=== PATIENT | male | born 1990 | race Two or more races ===

== ENCOUNTER 2024-06-22 01:59 | Emergency (ER) | payer OTHER, MEDICAID, SELFPAY ==
[2024-06-22 02:05] VITALS: BP 108/82; PULSE 68; TEMP 36.8; O2SAT 98; BMI 27.0
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
[2024-06-22] MEDS: OXYCODONE HCL/ACETAMINOPHEN 5MG/325MG 1 TAB PO (02:53)
[2024-06-22] MEDS: OXYCODONE HCL/ACETAMINOPHEN 5MG/325MG 2 TAB PO (03:54)
[2024-06-22] MEDS: BACITRACIN 0.9 GM PACKET 1 PACKET TOPICAL (03:55)
[2024-06-22 04:10] VITALS: BP 90/58; PULSE 51; O2SAT 96
== END 2024-06-22 04:15 | disposition home or self-care (01) ==
PROVIDERS: Emergency Provider Emergency Medicine
DX: S80.02XA Contusion of left knee, initial encounter (principal); S76.011A Strain of muscle, fascia and tendon of right hip, initial encounter; S80.01XA Contusion of right knee, initial encounter; M92.523 Juvenile osteochondrosis of tibia tubercle, bilateral; S80.811A Abrasion, right lower leg, initial encounter; V49.59XA Passenger injured in collision with other motor vehicles in traffic accident, initial encounter
CPT/HCPCS: 73562; 99283

== ENCOUNTER 2025-06-22 12:50 | Emergency (ER) | payer OTHER, MEDICAID, SELFPAY ==
--- OUTSIDE RECORDS SUMMARY | 2025-01-22 09:42 | XMS_ITS | Continuity of Care Document ---
Author Organization [facility] Address [address] [place] [address] Phone Care Team Providers Care Electric Needle Specialist Name Role Phone Bre Epstein Unavailable Unavailable Procedures Procedure Date Acute Detox Elevator Constructor Electric Acute Detox Elevator Constructor Electric ROUTINE VENIPUNCTURE DRUG TEST PRSMV DIR OPT OBS Acute Detox Elevator Constructor Electric Acute Detox Elevator Constructor Electric Advance Directives Directive Yes / No Effective Date File Name No Information Encounters Encounter Description Practice Location Reason(s) For Visit Diagnoses Date Provider Providers Copied on Encounter [facility], [address] [place] [address], [id number], [place] tel:[phone] [facility] Detox No Information Klidas Bre. [address], [place], [id number], [place]. tel:[phone] [facility], [address], [place], [id number], [place] tel:[phone] [facility] Detox No Information Klidas Bre. [address], [place], [id number], [place]. tel:[phone] [facility], [address] [place] [address], [id number], [place] tel:[phone] [facility] Detox No Information Klidas Bre. [address], [place], [id number], [place]. tel:[phone] Family History Family Member Type Diagnosis Age At Onset No Information Payers Payer name Insurance type Covered libertarian ID Authornena duke(s) [facility] Medicaid [id number] Social History Type Description Quantity Date Captured Comments Sex Male Smoking Status No Information Chief Complaint And Reason For Visit No Information Reason For Referral Reason For Referral No Information History Of Present Illness Encounter Date Complaint History Of Prese nt Illness No Information Functional Status Date Functional Assessmen t No Information Instructions Date Instruction Additional Infor mation No Information Assessments Type Assessment Date No Information Patient Care Teams Name Effective Dates (start - stop) Status Members No Information
--- OUTSIDE RECORDS SUMMARY | 2025-02-14 09:00 | XMS_ITS ---
Author Organization [facility] Address [address] [place] [address] Care Team Providers Care Pest Controller Name Role Phone Vee Oh Primary Care Provider Roly Andrews Unavailable [phone] REASON FOR VISIT follow-up hospitalization Medications Medication SIG (Take, Route, Frequency, Duration) Notes Start Date End Date Status QUEtiapine Fumarate 100 MG 1 tablet twic e a day; Duration: 90 days Active Gabapentin 600 MG 1 tablet four times a day; Duration: 30 days Active Viibryd 20 MG 1 tablet with food O rally Once a day; Duration: 30 days 11/19/2022 Active Encounters Encounter Location Date Provider Diagnosis [facility] [address] [facility] [place] [address] 2024 Roly Andrews Plan Of Treatment Next Appt Details Provider Name:Willa Sommersmago dominic, 06/29/2025 08:00:00 AM, [address] [facility], [address], Progress Notes * LUAN JESUS ADOB:1990 (34 yo M)Acc No.[id number]:02/14/2025 Behavioral Health Patient: LUAN MORGAN Provider: MARY Swartz :1990 A ge:34 Y S ex:Male Date:02/14/2025 Address: [address] [place], [id number] Pcp:Vee Oh Subjective: * Chief Complaints: * 1 . Follow-up hospitalization. * Medical History: * Medications: T aking QUEtiapine Fumarate 100 MG Tablet 1 tablet twice a day , Taking Gabapentin 600 MG Tablet 1 tablet four times a day , Taking Viibryd 20 MG Tablet 1 tablet with food Orally Once a day Objective: * Vitals: Assessment: Plan: * Treatment: * Images: * Electronic signature of MARY Jane on 06/22/2025 at 01:11 PM EDT Sign off status: Pending * Provider: MARY Swartz Date: 02/14/2025 Generated for Giovanny jamison/Alice/Sarthak on: 06/22/2025 01:11 PM EDT
--- OUTSIDE RECORDS SUMMARY | 2025-03-07 11:45 | XMS_ITS ---
Author Organization [facility] es Address [address] [place] [address] Care Team Providers Care Cage Cashier Name Role Phone Vee Oh Primary Care Provider Roly Andrews Unavailable [phone] REASON FOR VISIT 3 month F/U virtual Doximity Encounters Encounter Location Date Provider Diagnosis [facility] [place] [address] [place] [address] 2024 Roly Andrews Plan Of Treatment Next Appt Details Provider Name:Willa alfaro, 06/29/2025 08:00:00 AM, [address] [place], [address], Progress Notes * LUAN JESUS ADOB:1990 (34 yo M)Acc No.[id number]:03/07/2025 Behavioral Health Patient: LUAN MORGAN Provider: MARY Swartz :1990 A ge:34 Y S ex:Male Date:03/07/2025 Address:[address], [id number] Pcp:Vee Oh Subjective: * Chief Complaints: * 1 . 3 month F/U virtual Doximity. * Medical History: Objective: * Vitals: Assessment: Plan: * Treatment: * Images: * Electronic signature of MARY Jane on 06/22/2025 at 01:11 PM EDT Sign off status: Pending * Provider: MARY Swartz Date: 0 03/07/2025 Generated for Giovanny Krueger/Sarthak on: 0 06/22/2025 01:11 PM EDT
--- OUTSIDE RECORDS SUMMARY | 2025-03-09 11:45 | XMS_ITS ---
Author Organization [facility] es Address [address] [place] [address] Care Team Providers Care Sanitation Associate Name Role Phone Vee Oh Primary Care Provider Roly Andrews Unavailable [phone] REASON FOR VISIT 3 month f/u r/s from 03/07 Medications Medication SIG (Take, Route, Frequency, Duration) Notes Start Date End Date Status QUEtiapine Fumarate 100 MG 1 tablet twic e a day; Duration: 90 days Active Gabapentin 600 MG 1 tablet four times a day; Duration: 30 days Active Viibryd 20 MG 1 tablet with food O rally Once a day; Duration: 30 days 11/19/2022 Active Encounters Encounter Location Date Provider Diagnosis [facility] [address] [place] [address] 2024 Roly Andrews Plan Of Treatment Next Appt Details Provider Name:Willa Matthews dominic, 06/29/2025 08:00:00 AM, [address] [place], [address], Progress Notes * LUAN JESUS ADOB:1990 (34 yo M)Acc No.[id number]:03/09/2025 Behavioral Health Patient: LUAN MORGAN Provider: MARY Swartz :1990 A ge:34 Y S ex:Male Date:03/09/2025 Address: [address] [place], [id number] Pcp:Vee Oh Subjective: * Chief Complaints: * 1 . 3 month f/u r/s from 03/07. * Medical History: * Medications: T aking [...] Pending * Provider: MARY Swartz Date: 0 03/09/2025 Generated for Giovanny jamison/Alice/Sarthak on: 0 06/22/2025 01:11 PM EDT
[2025-06-22 12:58] VITALS: BP 119/74; PULSE 112; TEMP 37.2; O2SAT 98; BMI 26.4
--- OUTSIDE RECORDS SUMMARY | 2025-06-22 13:11 | XMS_ITS | Patient Health Record ---
Author Organization [facility] es Address [address] [place] [address] Care Team Providers Care Railways Assistant Name Role Phone kimberlyJerricagalindoRosalvaVee Primary Care Provider Roly Andrews Unavailable [phone] Willa Wright Unavailable [phone] Allergies Allergen (clinical drug ingredient) Drug/Non Drug Allergy documented on EMR Reaction Allergy Type Onset Date Status DTAP (uncoded) SEIZURES Allergy Activ e Reason For Referral No Information Medications Medication SIG (Take, Route, Frequency, Duration) Notes Start Date End Date Status QUEtiapine Fumarate 100 MG 1 tablet Oral ly twice a day; Duration: 30 days Active Gabapentin 600 MG 1 tablet Orally four times a day; Duration: 30 days Active Viibryd 20 MG 1 tablet with food O rally Once a day; Duration: 30 days 11/19/2022 Active Social History Tobacco Use: Social History Observation Description Date Details (start date - stop date) Current Smoker NA - NA Tobacco Screen: Question Answer Notes Are you a: current smoker How often do you smoke cigarettes? every day How many cigarettes a day do you smoke? 6-10 Alcohol Screening: Question Answer Notes Did you have a drink containing alcohol in the p ast year? No Points 0 Interpretation Negative Depression Screening (PHQ-9): Question Answer Notes Little interest or pleasure in doing things Not at all Feeling down, depressed, or hopeless Not at all Trouble falling or staying asleep, or sleeping t oo much Not at all Feeling tired or having little energy Not at all Poor appetite or overeating Not at all Feeling bad about yourself-o r that you are a failure or have let yourself or your family down Not at all Trouble concentrating on thi ngs, such as reading the newspaper or watching television Not at all Moving or speaking so slowly that other people could have noticed. Or the opposite being so fidgety or restless that you have been moving around a lot more than usual Not at all Thoughts that you would be b bob off , or of hurting yourself in some way Not at all Total Score 0 Tobacco Control (Standard) Question Answer Notes Tobacco use: Current smoker Problems Problem Type SNOMED Code ICD Code Onset Dates Problem Status W/U Status Risk Notes Problem Severe recurrent major depression without psychotic features (26191382) Severe episode of recurrent major depressive disorder, without psychotic features (F33.2) Active confirmed Problem Recurrent major depression in remission (77703535) Recurrent major depressive disorder, in partial remission (F33.41) Active confirmed Vital Signs Heart Rate 106 /min 12/06/2024 Temperature 99.0 degrees Fahrenheit 12/06/2024 Blood pressure diastolic 81 mm Hg 12/06/2024 Oximetry 98 % 12/06/2024 Height 73 in 12/06/2024 Blood pressure systolic 118 mm Hg 12/06/2024 Weight 214.6 lbs 12/06/2024 BMI 28.31 kg/m2 12/06/2024 Encounters Encounter Location Date Provider Diagnosis [facility] [address] [place] [address] 12/14/2024 [facility] Juliana Recurrent major depressive disorder, in partial remission F33.41 [facility] [address] [place] [address] 02/09/2025 [facility] [address] [place] [address] 06/07/2025 Willa Wright Recurrent major depressive disorder, in partial remission F33.41 [facility] [address] [place] [address] 06/22/2024 [facility] Juliana [facility] [address] [place] [address] 09/08/2024 [facility] Juliana Recurrent major depressive disorder, in partial remission F33.41 [facility] [place] [address] [place] [address] 12/06/2024 Roly Andrews Recurrent major depressive disorder, in partial remission F33.41 [facility] [place] [address] 03/13/2025 Roly Andrews Recurrent major depressive disorder, in partial remission F33.41 Assessments Encounter Date Diagnosis (ICD Code) Assessment Notes Treatment Notes Treatment Clinical Notes Section Notes 09/08/2024 Recurrent major depressive disorder, in partial remission (ICD-10 - F33.41) 12/06/2024 Recurrent major depressive disorder, in partial remission (ICD-10 - F33.41) Informed consent obtained: YES, we discussed the diagnosis/diagnoses , the treatment options, treatment(s) recommendations vs. no treatment. We discussed risks and benefits of treatment options, treatment recommendations vs. no treatment. Currently at low risk for self harm. Denies ongoing feelings of hopelessness. Denies ongoing suicidal ideation, intent or plan in session. Pharmacological management: Alternative medication plans were discussed with the patient and or guardian. All relevant and serious adverse effects were discussed. Standard precautions and potential benefits were discussed. Patient/Guardian consented to begin medication/ continue treatment plan. questions answered satisfactorily, agreeable to treatment plan Cont current treatment Tolerating meds well, compliant Call for problems Follow up 3 months Patient/Guardian will call sooner if symptoms worsen. Patient understands to go to the ER if needed if symptoms become severe. Crisis intervention plan was discussed and agreed upon. Patient/Guardian will call 911 in case of emergency. Emergency contact information was provided to the patient/guardian. 12/14/2024 Recurrent major depressive disorder, in partial remission (ICD-10 - F33.41) 03/13/2025 Recurrent major depressive disorder, in partial remission (ICD-10 - F33.41) Informed consent obtained: YES, we discussed the diagnosis/diagnoses , the treatment options, treatment(s) recommendations vs. no treatment. We discussed risks and benefits of treatment options, treatment recommendations vs. no treatment. Currently at low risk for self harm. Denies ongoing feelings of hopelessness. Denies ongoing suicidal ideation, intent or plan in session. Pharmacological management: Alternative medication plans were discussed with the patient and or guardian. All relevant and serious adverse effects were discussed. Standard precautions and potential benefits were discussed. Patient/Guardian consented to begin medication/ continue treatment plan. questions answered satisfactorily, agreeable to treatment plan Cont current treatment Tolerating meds well, compliant Call for problems Follow up 3 months Patient/Guardian will call sooner if symptoms worsen. Patient understands to go to the ER if needed if symptoms become severe. Crisis intervention plan was discussed and agreed upon. Patient/Guardian will call 911 in case of emergency. Emergency contact information was provided to the patient/guardian. 06/07/2025 Recurrent major depressive disorder, in partial remission (ICD-10 - F33.41) Plan Of Treatment Next Appt Details Provider Name:Willa alfaro, 06/29/2025 08:00:00 AM, Ronak [facility] [place], [address], Insurance Providers Payer Name Payer Address Payer Phone Subscriber Number Group Number Insured Name Patient Relationship to Insured Coverage Start Date Coverage End Date [facility] [address] [place] [address] [id number] LUAN JESUS Self - patient is the insured [facility] [address] [place] [address] [id number] LUAN JESUS Self - patient is the insured 3 MEDICAID [place] [address] [place] [address] [id number] LUAN JESUS Self - patient is the insured 3 3 [employer] [place] Medicaid [address] [place] [address] [id number] LUAN JESUS Self - patient is the insured [address] [place] [address] [address] [place] [address] [id number] LUAN JESUS Self - patient is the insured 3 Medical (General) History Medical History History ICD Code ANXIETY DEPRESSION Surgical History Surgery Date(Month/Year) APPY Hospitalization History Reason Date(Month/Year) 04/2022
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
--- OUTSIDE RECORDS SUMMARY | 2025-06-22 13:28 | XMS_ITS | CCD ---
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 pain and stress. IF YOU ARE PRESCRIBED OPIOIDS FOR PAIN: ? Never take opioids in greater amounts or more often than prescribed. ? Follow up with your primary health care provider. o Work together to create a plan on how to manage your pain. o Talk about ways to help manage your pain that don?t involve prescription opioids. o Talk about any and all concerns and side effects. ? Help prevent misuse and abuse o Never sell or share prescription opioids. o Never use another person?s prescription opioids. ? Store prescription opioids in a secure place and out of reach of others (this may include visitors, children, friends, and family). ? Safely dispose of unused prescription opioids: Find your community drug take-back program or your pharmacy mail-back program, or flush them down the toilet, following guidance from the Food and Drug Administration (www.fda.gov/Drugs/Resourc esForYou). ? Visit www.cdc.gov/drugoverdose to learn about the risks of opioids abuse and overdose. ? If you believe you may be struggling with addiction, tell your health care transitions nurse and ask for guidance or call [employer]?S National Helpline at 9-684-560-KSHS. (more content not included)... Normal [facility] Chcf Documentson 06-05-2022 Chcf Documents Chcf Nurse Visit 14 day Health Appraisal Date of Appraisal: _05/20/2022 Booked Date: 05/15/2022 Court or Release Date: 05/20/2022 Did inmate come from another facility: YES, [facility] PCP: NESSA LOMAX Specialist: NONE Pharmacy: [facility] Have you ever had suicide attempts: YES If yes, when was your last attempt and how: 2006 OVERDOSE Are you currently under the care of a practitioner for any reason: NO If yes, please explain: _ Date Receiving Screen Evaluation Form reviewed: 05/16/2022 Date Suicide Prevention Health Form reviewed: 05/16/2022 Has the sick call procedure has been explained: YES Does Inmate verbalize understanding: YES Do you or have you ever had any of the following: Recent Head Injury: CLAIMS HE FELL OUT OF A TREE AND HAD 2 CONCUSSIONS BUT NEVER SOUGHT MEDICAL TREATMENT Persistent Headaches: YES CONSTANTLY Vertigo/Dizziness/ Fainting: _ UNSURE IF I HAVE VERTIGO OR SEIZURES Stroke/TIA: NO Seizure Disorder: UNSURE IF I HAVE SEIZURES OR VERTIGO, PRETTY SURE I HAD A SEIZURE ONCE NEVER SOUGHT MEDICAL TREATMENT Eye/Vision Problems: NO Ear/Nose/Throat Problems: NO Dental Problems: NO Problems Breathing/ Asthma: NO Genitourinary Problems: NO Diabetes: NO Gastrointestinal Issues: NO High/Low Blood Pressure: NO Heart Problems: NO Recent Broken Bones or deformities: NO Arthritis/ Joint Mobility Issues or Deformities: NO Back/Neck Problems: LOWER BACK PAIN Skin Problems, Rashes, Open Wounds: NO STDs (recent, past, or present): NO Hepatitis Positive: HEP C HIV Positive: NO Bleeding/Other Blood Disorder: NO Body Infestation (Lice, Crabs, Scabies, Etc): NO Do you have a history of: Violence towards others: NO Being victimized: NO Being sexually assaulted: NO Sexually assaulting others: NO Is this person obviously a higher risk for victimization or assault: NO How does the patient identify him/herself in terms of gender: MALE SKIN: WARM, DRY, INTACT Skin Color: NORMAL FOR ETHNICITY Turgor: WNL Bruises: NO Wound/Lesions: NO Rash: NO Jaundice: NO Edema: NO Clarify and describe: _ Is Physical Therapy needed: NO CARDIOVASCULAR: _ Arrhythmia: NO Chest Pain: NO Clarify yes response: _ RESPIRATORY: EVEN, UNLABORED Dyspnea: NO Cough: NO Clarify yes response: _ [Mental Status Exam] TB Skin Test Have you ever had tuberculosis: NO Have you ever had a positive TB skin test: NO PPD given on: Location given: _ forearm Date vial opened: _ Lot number: _ Expiration date: _ PPD Comments: REFUSED Inmate states they have had the following Immunizations: STATES HE WAS VACCINATED A CHILD, NONE AN ADULT Hep A: _ Hep B: _ DTAP: _ HIB: _ IPV: _ MMR: _ Varivax: _ HPV: _ Influenza: _ PneumoPCV: _ PPSV23: _ Inmate tested positive for the following drugs: STATES IV USAGE Cocaine (SAMIR): _ Methamphetamine (MET/mAMP): _ Marijuana (THC): _ _ Fentanyl (FTY): _ Have you ever had seizures or other symptoms of withdrawal after stopping the use of alcohol/drugs? _ YES I THINK I HAD A SEIZURE BEFORE Do you wish to attend AA Meetings? YES Chcf Assessment 05/20/22 09:53:00 Chcf Assessment Entered On: 05/21/2022 9:55 EDT Performed On: 05/20/2022 9:53 EDT by Janie Ocasio RN Covid-19, MERS, Ebola Screen *Contact With Person With Highly Contagious Disease Like Ebola/MERS/COVID-19 AND Have One or More of the Symptoms Below : No *Travel to a Country With Wide-Spread Ebola/MERS/COVID-19 in the Past 21 Days AND Have One or More of the Symptoms Below : No Patient Reported Covid-19 Testing : Yes Patient Reported Covid-19 Testing Result : Negative Patient Reported Covid-19 Testing Date Question : Yes Patient Reported Covid-19 Testing Where : [facility] Patient Reported Covid-19 Testing When : 05/19/2022 EDT *Verify Droplet, Contact Precautions for Ebola (Reference for CDC) : N/A *Verify Airborne, Droplet Precautions for MERS/COVID-19 : N/A Janie Ocasio RN - 05/21/2022 9:53 EDT Summary Chief Complaint : Health appraisal Height in Inches : 73 in Height/Length Measured : 185.4 cm(Converted to: 6 ft 1 in, 72.99 in) Weight Measured : 76.0 kg(Converted to: 167 lb 9 Ounces, 167.551 lb) Body Mass Index Measured : 22.11 kg/m2 Weight in Pounds : 167.2 Systolic Blood Pressure : 126 mmHg Diastolic Blood Pressure : 81 mmHg Blood Pressure Location : Right arm Blood Pressure Position : Sitting O2 Sat Resting/Exertion Alpha : Resting Peripheral Pulse Rate : 82 bpm Respiratory Rate : 12 br/min (LOW) SpO2 : 98 % Temperature Oral : 37.1 DegC(Converted to: 98.8 DegF) Janie Ocasio RN 05/21/2022 9:53 EDT Objective Data and Cognition Screening Cognition: Oriented To : Person, Place, Time Lvl of Consciousness : Alert Cognition: Speech : Normal Cognition: Behavior : Cooperative Cognition: Hallucinations : None Cognition: Mood and Affect : Calm Caprice R (more content not included)... Normal [facility] Chcf Documentson 06-03-2022 Chcf Documents [id number]:127 Normal [facility] Chcf Documents [id number]:127 Normal [facility] Chcf Documents [id number]:127 Normal [facility] .HCV RT-PCR, Quant (Non-Grap h)on 06-02-2022 Diagnostic impression Molgen Johan (Unsp spec) [Interp] COMMENT Invalid Interpretation Code [facility] Comment on above: Result Comment: Test not performed. Insufficient specimen to perform or complete analysis. contacted Kelly at your facility on 06-02-2022 Performed at: [address] [id number] MD Gabriel Araiza Performed By: #### 2 [id number], [id number], [id number], [id number], [id number], [id number] ####[facility] [address] [place] [id number] HCV RNA KEITH+probe Qn COMMENT Invalid Interpretation Code [facility] Comment on above: Result Comment: Test not performed. Insufficient specimen to perform or complete analysis. contacted Kelly at your facility on 06-02-2022 Performed By: #### 2 [id number], [id number], [id number], [id number], [id number], [id number] ####[facility] [address] [place] [address] Reference Lab Test Reference Range Comment Invalid Interpretation Code [facility] Comment on above: Result Comment: The quantitative range of this assay is 15 IU/mL to 100 million IU/mL. Performed By: #### 2 [id number], [id number], [id number], [id number], [id number], [id number] ####[facility] [address] [place] [address] Acute Hepatitis A B C Panelo n 06-02-2022 HAV IgM IA Ql Negative Invalid Interpretation Code Negative [facility] Comment on above: Performed By: #### 2 [id number], [id number], [id number], [id number], [id number], [id number] ####[facility] [address] [place] [address] HBV core IgM IA Ql Negative Invalid Interpretation Code Negative [facility] Comment on above: Performed By: #### 2 [id number], [id number], [id number], [id number], [id number], [id number] ####[facility] [address] [place] [address] HBV surface Ag IA Ql Negative Invalid Interpretation Code Negative [facility] Comment on above: Performed By: #### 2 [id number], [id number], 8361853, [id number], [id number], [id number] ####[facility] [address] [place] [address] HCV Ab Signal/Cutoff IA [Rel units/Vol] {ratio} High 0.0-0.9 [facility] Comment on above: Result Comment: Perf ormed at: [address] [id number] PhD Becky Xiong Performed By: #### 2 279979, [id number], [id number], [id number], [id number], [id number] ####[facility] [address] [place] [address] HIV Screen 4th Generation wR fxon 06-02-2022 HIV 1+2 Ab+HIV1 p24 Ag IA Ql COMMENT Invalid Interpretation Code [facility] Comment on above: Result Comment: Test not performed. Insufficient specimen to perform or complete analysis. contacted Kelly at your facility on 06-02-2022 Performed at: [facility] [address] [id number] PhD Becky Xiong Performed By: #### 9 [id number], [id number], [id number] ####[facility] [address] [place] [address] SPEC. STATUS REPORTon 2021 Specimen Status Report COMMENT Invalid Interpretation Code [facility] Comment on above: Result Comment: Test not performed. Insufficient specimen to perform or complete analysis. TEST: [id number] HIV Ab/p24 Ag with Reflex contacted Kelly at your facility on 06-02-2022 Performed at: [address] [id number] PhD Becky Xiong Performed By: #### 9 [id number], [id number], [id number] ####[place] [address] [place] [address] Specimen Status Report COMMENT Invalid Interpretation Code [facility] Comment on above: Result Comment: Test not performed. Insufficient specimen to perform or complete analysis. TEST: [id number] Hepatitis C Quantitation Panel: [id number] Interpretation: Panel: [id number] contacted Kelly at your facility on 06-02-2022 Performed at: [address] [id number] PhD Becky Xiong Performed By: #### 2 [id number], [id number], [id number], [id number], [id number], [id number] ####[place] [address] [place] [address] WRITTEN AUTHORIZATIONon 05-18 Written Authorization Comment Invalid Interpretation Code [facility] Comment on above: Result Comment: Writ ten Authorization Received. Authorization received from ORIGINAL ORDER [id number] 06-01-2022 Logged by Marilee Barba Performed at: [address] [id number] PhD Becky Xiong Performed By: #### 9 [id number], [id number], [id number] ####[place] [address] [place] [address] Coding Summary.on 06-01-2022 Coding Summary. CD:[id number] Gh0bWw +PGhlYWQ+ZN4EWELrN61yyEIal B9ZJ5tHGJ0XTUMAMRRRKV0AMR4 qjKP1FUmfR2EiviBd JthjmBDoVQ51NGn7OZV3dChpSH rtgR5tuHNjQ5v4LaLuPZ60dS78 RQsbWJXxKoQ1JoHnmaqnqXPs V4oaCbOkaGLnOdm+PHRhYmxlIH bxCPRnLXhjPQGvSxPppNogJY7l Ye6gBROkZBTspGnteQWcQjJk i4nyDEQhQNbiWP1naPqwS3EyrX H2NVCsq8f6Tr34nHB+PHRkIHN0 vXifQQihs441AtOsk9ovMEC0 aCRnGRunCYE0W35ll8D8MJUrJJ QrUVX1jAQ7qA9zkTcequqdH4Lu hSKhGqD5RGY1jNFqiX0krIta qetxhI1lYmy+M96IHF2SKEWQHJ 0HUgu3K0ZvRgjgwFI+WZ03PGXu DJ83jVNiaZGbr8tmkGq9KyVy SQVhYVH0eNvzAHlou1SgVRWqD8 7orRKrw5U0LPBwzDosjONgWlBu zMQ3bQ1qMFvazkagw0shhntr Izxhv9vlck20pP80L85aRHlzAY VaPIE1YZLdCEIqlRnrbh1yjR0w Ii8+VQngd1rvn3bfiEn3UbQc SQBydoXceBytMKG4b2NhWp94F6 BsjVuou2NyGyq2ms14zYHpf9T7 aGY5VLrbBHQwsI4uZOxgJqG6 YEJmHlZqsA26iENiKEsvOi2mlY oesOjhJV0nVKQervbeNRTxdY4p WCTtwDCbdGuhDU0bTWJpsxym j356NlTrPJC0SEQihHMmN6KfcC 6uJxEgDECnDAReZ5PgiKZzSRum F857LIrzVlA6OMMwkyTvC4Ax DGJslYmcHcY3h1R2Hc1Qc4Lawp ieOBH1PQprQJG1AkC8ZvCaVsR5 I1KlQxt5JJBnrPlvDN8qR4Qd ZVRnkblxusabxSW5OCHtXMJakX 47kURkGGqlTn8so1P4c960PMYc YYBviI64Tf5thIytGYHkrNME pH6jeyhew1sgqvjfYxToNOAvBT b3IJe8EALjbEocVpFqEJS1ZdO9 RDN8fRJqgO7asAbacfvllO3b Oyc+D86weU4iEIS6DNU3rdfqNP DwcpOgCD15WL30Q7LgVkxlwCNd bGU+VFCdfkUnwQovWH9gUzMw v0ync5EnAWyiH8EeNFKvSAahAp d2JVJmUEC7xIB6fH7iGUZpWOkb x7B4nIM6A1GrfrVckg1eq9ls RUOpECqkL58liEBuq5X3DDDzlR E0YEKzuUeuCpPfdX67Azk+PGNv iJxic0GeMbuwp2twr6ifuBk2 BpKwINGrkaTqsVwtJGS6k3PzWp 21G07sPAvtQRVoZDUzEWKgKXCu mWruun7vwM0oSk6+PGNvbCB3 dIK8cB2jAECsRrG3QOtsU414Ff SikASkRmttp0okq0gvgIf7MoZk TDZxdgFtfTsjJGA2r5ZoLc19 J34iCLniMDCnSLQyOHEqXGQpeJ rmad3dcL9hYx3+ZE1uk1jqbt76 oB45wHQ+ZFYhEQX2qLlyDQza PUQcwU6vGMozCiX0PYUvPcKwkC 41fVRsKCvuOo0rmTyatZxdBS4u HBEacjwst322CjDri8riEBAp dHEsHVprUIV4P35gu6T7YCKxQT AyNMF1xZP8mJ8fkQxagomjsXBd dYmpvgAxuDehAXrpKMswZ608 IHRvcDsnPlBhdGllbnQgTmFtZT i3L4OmXxw3XGXicLmoRZ4ylVSc BZieVc5ukRelbUmnVA1nRWBz elwpt803PtXve0agLTWhhWFiCD ufETI6U94dk7F5IYNhYIHrCMZ6 sIO3oL3uhHrgvoxtaBEbnZrn peUbcUcdQTbjESsaD727MNXpuN rbJiSojsNhKJMvsOP4RM39KK13 xSIyp6S9cFN4M4NdCOVrvrnv oxmlnIL8QBHqJIRoaO75Cu6pcS oyHf7pBEXwZEN9JPCptEUsB4Uc oW2hQhCeYFNbEEZrN2QyyVOp ODwtI013HGetCpN2QLLjvsRiO0 TkXODczVylZoV7x5S8Yt7KR7S3 XM59ZM53wQVnp9Q6wPJ5W3Rp GDIrcyctjocfuXO5MTSjNIGznK 13Fo9onShjMw8iYTAzTEG0YMTj rAQaK3WhpH9bCsGwXJNhWIMe P9NecIKyRWskQ205XYjxVeE3VF PufoEkO9EjSFJshOksFoV2c7W1 Ly7TGKk5IE89LP56hTSad5E0 tAI3Y5GdLBQceiuarktoiPM2ZQ YjQLNdeP04Ud0xzJrsGi5iWTSh GFI7AGBqbXEdP3JqxG3dJsCu XPZrATXwT0IfhYYxJKnyB569MQ ccPoC1GKQjltUzT9LzELLmqZrw FkN7f1D7Vw2QGXUcEJ96MTD9 mGJ2OV35TQ67G1GuPnirwYOrpO U+PHRhYmxlIHdpZHRoPScxMDAl WlIhdBobOB1cOu6lBCFpLKGt qOzvtVMlZhDep0ulTNXoHEtpEC 2ztCkcK6GacGM4AEOkp2l1Ew62 V31jB3OokJN+ZWKfsXJ3sBP4 xN1nWsQtEoR4AEwtV994AkGgvO HpUsugz8eal6dhhGb7PtI6RTDu umQkcEeaAAP0q7ZsBg69Y59o IHdpZHRoPSIxNSUiIHZhbGlnbj 4arL5xZh0+OSOtgNG5hCB5iQ3k PrQjAhB4BCbrF956GdDivGOe Sneks6qwd7wosYy1LlJlEPAtzb ZcoAweGOI6b4XcVx87T2YnwUvv g3LxUku7tm08sUDcd0O1jDU5 W6RjUCAnfnfxtCYffRckXO3pKS SjbgoaDRIvlJ1aSWCfW0b6XlBy UmG3AKytR7RclhX3WVWtbCFv SFwuATZ1V56hk0J5YWWdSXPdEX X3zVT5vO7wmWvqcconhCHjiFep hcAbyUktZTjvIQhmK157IFXt iDjxIARxqX8gEWUrgSFqkQekUO 6vBLRnfleoPzLRR1wePRQTBKxP JYZ2P0XdKtd9DXVwfLfgIV8o pANbWJbaOb7cwQztmIemLY1jRZ WuczaqUHUktW3cBZMwfGQebIlp PF7zDWMimwhov665WqAsLQZ0 MAZfxEWmR3OpxW7tMvPwIFPzMP GfU7QotVGpQFsmI346VGbdLpG0 PCJwzsQtY6LqTIPznIuqGpX6 i6M2Qt2bFp6cSc2eVEfhFU92VQ 19iCDqi0Y7aLQ6R6GoOIBwnuje hodvjQG3VCXgIGEilM01sSJx SZorUp1zx5L5w569XCArRSZsaE 49Yn4zoDgcELSwsWLXiL6aoszv o9wwivbnBkSaLHGhLPj4XUf3 KROzyCqmOuIgIQK2QqO7AKT0mR GyhB0loUmodaomhZ4sKit+MzAg MHRkkiS2U4VnVnf9RAWkyRbf QR5wkOJtURtdGr5aqHdjeEzfLN 0iOESdpfhnMPGdhR9fVGWyzCOb tXdhYB0dVNNcoegyh921RuKr VFU0IHRdnGVgP5EqwT0qAyHlOI ClLRLeA1XovEFgQXsvI637AAkz FjR0WBYdrlIyI8WmICOksAhw WnI6b4T0Js5KSUhjIR13MH33pO Zxo7S0uSN2E9DfJBTvjhdmsanz pAJ3TKLsDEQegT16lFYpAUwa Th7ri4G6s322SFGaXEOrrF08Yd 8ngSbmAMCbzWKBkC2ldcxxn7zd nrbmOpQwBRAyRKe2QMz4XLQx kWxdDpRvBKC2XlT9GEJ6oEEjwA 2bxFzviwavyX1eByx+I2C9bWU9 aWVudDwvdGQ+GB59zn89B2Eb AloaXfn0WZStTZJ8tIZ0kG5fNQ PbVRnfx7A7mLV7P4TuazQegz7n a7fwVVOgVJjfP37lgFSqq8C0 ITUsjPI0MKYzkZmlFtRfrK27Ki c+JJVarXowk8HmGwgyt0mwz0al oIu5RiEcSPMmdhHfrZfyNEN8 p1DhBu38N14pKEvnBSOgEOWpBU ClNIYfbTjkcx7ifB2sJl7+PGNv sJJ1tYT9zK3kObYqZgR1DHyj K347LkJhrJSpNjqgp9xln6uynV n2AnAlHSZoexEsfSbeOLM1c7Vi Jr93V0VoeUmwx7LcLfy1yt32 vGTes2E5eIF3D6YsNDIbbyglnX RscIhcSA7oUSMqzlrgWAWhcA6x HUXqW3w0ZlVcAlG9DBfuI7Ld odU0YFDalJYaITHgcXJEjR3tme lvd0yesowgWqXrKPMfQEu3MJn1 KWFavEiaVdQtZFG2QlA6RLI3 gUEnwZ6hiLjowwlmtA7gWgf+UG f7n0dteHUbCV5yrQW5WZ89BE39 vBUmi1F2pDN0K9GzSCVmpmam dchskSZ1SVDxFFWhgT74Oh8dcK nwHh1rYYKtRTH8QBAbxDLxW0Tp iO0aHpKsTEAoCOGmG0FdaCVm GFryK822PSisHdQ9JCUnfjXtX2 EnEOEptZmfLgT9a5Q4Ry7JES12 RO46HL31tTDto5G6fRP9F1Ql NWRinejmhlvleVF6YTAsCLOnaW 07Xd5haSyuQs1eEVBuTLJ9ZIJp lSLvY9ZlyJ7kGsEwFJXaQJSu H7XyuGTcBOxrF316HKwuGpI3DF EaicSfB0YbCVNxgFbbOhJ4a8I9 Fx6IYo03ET19NU75mJObx3M6 gYY6H4XgVQNfpbkqtneioTF6PU ShVVYncA88Uh1mmDtoWa1bWLMv IWL7JRZuxUTxG9RyeO8iMrEl VNOwNZCqR6EjtSMjIUoyF600VE gpIsE4VRXqcnStG9AtHJYrfRzm ZiQ8g8W4Pi8IMZiwrdm1V0Ms PjwvdHI+XZ62NBWmGY67kCZooE Bvb1qdgYb2CdLrSKCnIET3qGqn DGhns6GfNZWeG82geOUcj9Y8 IGNv (more content not included)... Normal [facility] CBC w/Indiceson 05-29-2022 Erythrocyte distribution width (RBC) [Ratio] 12.8 % Normal 10.9-14.2 [facility] Comment on above: Performed By: #### 2 176776, [id number], 6490961, [id number], 96324316, 67264814 ####[address] [place] [address] Hematocrit (Bld) [Volume fraction] 53.0 % High 37.7-49.0 [facility] Comment on above: Performed By: #### 2 321266, [id number], 1027163, 3441657071, 59367506, 36985976 ####[address] [place] [address] Hemoglobin (Bld) [Mass/Vol] 18.5 g/dL High 13.5-17.5 [facility] Comment on above: Performed By: #### 2 409196, [id number], 9649348, 4353709294, 87101116, 00880233 ####[address] [place] [address] MCH (RBC) [Entitic mass] 31.4 pg Normal 27.0-34.0 [facility] Comment on above: Performed By: #### 2 493667, [id number], 8654916, 6990569307, 97368465, 37466598 ####[address] [place] [address] MCHC (RBC) [Mass/Vol] 34.9 g/dL Normal 31.4-36.0 [facility] Comment on above: Performed By: #### 2 763028, [id number], 3137867, 2077844815, 48698610, 17435442 ####[address] [place] [address] MCV (RBC) [Entitic vol] 90.1 fL Normal 80.0-100.0 [facility] Comment on above: Performed By: #### 2 664134, [id number], 6077905, 1906766100, 19100265, 29273449 ####[address] [place] [address] Platelet mean volume (Bld) [Entitic vol] 9.6 fL Normal 6.4-10.8 [facility] Comment on above: Performed By: #### 2 080628, [id number], 4166010, 2157561115, 39525708, 30365923 ####[address] [address] Platelets (Bld) [#/Vol] 70.0 E9/L Low 150.0-500. 0 [facility] Comment on above: Result Comment: Spec imen is not clotted/ No platelet clumps seen Performed By: #### 2 860461, [id number], 9056770, 1940170267, 19059085, 36751110 ####[address] [address] RBC (Bld) [#/Vol] 5.9 E12/L Normal 4.3-5.9 [facility] Comment on above: Performed By: #### 2 294856, [id number], 9271096, 2005781282, 80032861, 37737871 ####[address] [place] [address] WBC corrected for nucl RBC Auto (Bld) [#/Vol] 12.1 E9/L High 4.0-11.0 [facility] Comment on above: Performed By: #### 2 061970, [id number], 2046559, 4095291797, 98457470, 70371444 ####[address] [place] [address] CHEMISTRYOrdered By: SYSTEM SYSTEM on 05-29-2022 Albumin [Mass/Vol] 4.4 g/dL Normal 3.3 - 5.0 gm/dL [facility] Remisol Albumin/Globulin [Mass ratio] 1.2 {ratio} Normal 1.1 - 2.2 [facility] Remisol ALP [Catalytic activity/Vol] 71 [iU]/d Normal 21 - 98 Int._Unit/ L [facility] ALT No additional P-5'-P [Catalytic activity/Vol] 54 [iU]/d High 6 - 46 Int._Unit/ L [facility] Anion gap [Moles/Vol] 11 mmol/L Normal 6 - 16 mEq/L [facility] AST [Catalytic activity/Vol] 25 [iU]/d Normal 5 - 43 Int._Unit/ L [facility] Bilirubin [Mass/Vol] 0.5 mg/dL Normal 0.0 - 1 .1 mg/dL [facility] Calcium [Mass/Vol] 9.2 mg/dL Normal 8.9 - 11. 1 mg/dL [facility] Chloride [Moles/Vol] 103 mmol/L Normal 101 - 1 11 mmol/L [facility] CO2 [Moles/Vol] 29 mmol/L Normal 21 - 31 mmol/L [facility] Creatinine [Mass/Vol] 1.1 mg/dL Normal 0.5 - 1.3 mg/dL [facility]isol GFR/1.73 sq M.predicted among blacks MDRD (S/P/Bld) [Vol rate/Area] mL/min/1.73 m2 Normal >=59mL/min /1.73 m2 FT Chem S GFR/1.73 sq M.predicted among non-blacks MDRD (S/P/Bld) [Vol rate/Area] mL/min/1.73 m2 Normal >=59mL/min /1.73 m2 FT Chem S Globulin (S) [Mass/Vol] 3.8 g/dL Normal 1.4 - 4.0 gm/dL [facility] Glucose [Mass/Vol] 102 mg/dL Normal 55 - 199 mg/dL [facility] Potassium [Moles/Vol] 4.4 mmol/L Normal 3.5 - 5.3 mmol/L [facility] Remisol Protein [Mass/Vol] 8.2 g/dL High 6.0 - 7.8 gm/dL [facility] Remisol Sodium [Moles/Vol] 139 mmol/L Normal 135 - 145 mmol/L [facility] Remisol Urea nitrogen [Mass/Vol] 17 mg/dL Normal 5 - 21 mg/dL [facility] Remisol Urea nitrogen/Creatinine [Mass ratio] 16 mg/mg Normal 10 - 20 [facility] Remisol CMPon 05-29-2022 Albumin [Mass/Vol] 4.4 g/dL Normal 3.3-5.0 [facility] Comment on above: Performed By: #### 2 444468, [id number], 2141074, 3338806992, 60736238, 00331042 ####[facility] [address] [place] [address] Albumin/Globulin (S) [Mass conc ratio] 1.2 Normal 1.1-2.2 [facility] Comment on above: Performed By: #### 2 054152, [id number], 7316913, 0155244012, 06124423, 07462853 ####[facility] [address] [place] [address] ALP [Catalytic activity/Vol] 71 Int._Unit/L Normal 21-98 [facility] Comment on above: Performed By: #### 2 176248, 5160788357, 0734887, 5427239661, 22481896, 70304852 ####[facility] [address] [place] [address] ALT No additional P-5'-P [Catalytic activity/Vol] 54 Int._Unit/L High 6-46 [facility] Comment on above: Performed By: #### 2 076537, 5992316685, 9026539, 7548114869, 29208115, 29009627 ####[facility] [address] [place] [address] Anion gap [Moles/Vol] 11 mmol/L Normal 6-16 [facility] Comment on above: Performed By: #### 2 715406, 1725543007, 8778112, 4046905016, 00508969, 67065287 ####[facility] [address] [place] [address] AST [Catalytic activity/Vol] 25 Int._Unit/L Normal 5-43 [facility] Comment on above: Performed By: #### 2 730390, 1614125672, 6200336, 2952011332, 12110235, 28361975 ####[facility] [address] [place] [address] Bilirubin [Mass/Vol] 0.5 mg/dL Normal 0.0-1.1 [facility] Comment on above: Performed By: #### 2 718360, 7348219882, 5438131, 0239391030, 61348195, 28983777 ####[facility] [address] [place] [address] Calcium [Mass/Vol] 9.2 mg/dL Normal 8.9-11.1 [facility] Comment on above: Performed By: #### 2 189411, 0918898190, 2882943, 7275823516, 39951412, 45623469 ####[facility] [address] [place] [address] Chloride [Moles/Vol] 103 mmol/L Normal 101-111 [facility] Comment on above: Performed By: #### 2 419308, 7168050586, 5502185, 9036368454, 14812432, 33815413 ####[facility] [address] [place] [address] CO2 [Moles/Vol] 29 mmol/L Normal 21-31 [facility] Comment on above: Performed By: #### 2 002145, 3037589386, 8561268, 0462409560, 27729694, 74314112 ####[facility] [address] [place] [address] Creatinine [Mass/Vol] 1.1 mg/dL Normal 0.5-1.3 [facility] Comment on above: Performed By: #### 2 990777, 7767738351, 9337685, 8346691613, 31395237, 05620086 ####[facility] [address] [place] [address] Globulin (S) [Mass/Vol] 3.8 g/dL Normal 1.4-4.0 [facility] Comment on above: Performed By: #### 2 593242, 4891927841, 7895199, 4247424756, 62555389, 93323145 ####[facility] [address] [place] [address] Glucose [Mass/Vol] 102 mg/dL Normal 55-199 [facility] Comment on above: Result Comment: If t his glucose result represents a fasting glucose, interpretation should refer to the following reference range: 55-99 mg/dL Performed By: #### 2 662461, 7202627431, 2542242, 4425153739, 58255965, 03504937 ####[facility] [address] [place] [address] Potassium [Moles/Vol] 4.4 mmol/L Normal 3.5-5.3 [facility] Comment on above: Performed By: #### 2 755761, 4722908809, 4662884, 6200829773, 16527754, 18173206 ####[facility] [address] [place] [address] Protein [Mass/Vol] 8.2 g/dL High 6.0-7.8 [facility] Comment on above: Performed By: #### 2 624099, 3676372532, 7613566, 3714307560, 53592912, 19679017 ####[facility] [address] [place] [address] Sodium [Moles/Vol] 139 mmol/L Normal 135-145 [facility] Comment on above: Performed By: #### 2 520619, 5924632614, 5975254, 3123702055, 46595547, 11749825 ####[facility] [address] [place] [address] Urea nitrogen [Mass/Vol] 17 mg/dL Normal 5-21 [facility] Comment on above: Performed By: #### 2 380866, 7588575046, 5419119, 1892162108, 15900944, 98287404 ####[facility] [address] [place] [address] Urea nitrogen/Creatinine [Mass ratio] 16 No Units Normal 10-20 [facility] Comment on above: Performed By: #### 2 204894, 2968778062, 0290297, 2488594366, 78105527, 33548383 ####[facility] [address] [place] [address] Consent for Treatmenton 05-18 Consent for Treatment [id number]:127 Normal [facility] HEMATOLOGYOrdered By: Rebeca Corral on 05-29-2022 Erythrocyte distribution width (RBC) [Ratio] 12.8 % Normal 10.9 - 14.2 % [facility] HemeAutoSS Hematocrit (Bld) [Volume fraction] 53.0 % High 37.7 - 49.0 % FT [facility]eAuto[facility] Hemoglobin (Bld) [Mass/Vol] 18.5 g/dL High 13.5 - 17.5 gm/dL FT [facility] MCH (RBC) [Entitic mass] 31.4 pg Normal 27.0 - 34.0 pg FT [facility] MCHC (RBC) [Mass/Vol] 34.9 g/dL Normal 31.4 - 36.0 gm/dL FT [facility] MCV (RBC) [Entitic vol] 90.1 fL Normal 80.0 - 100.0 fL FT [facility] Platelet mean volume (Bld) [Entitic vol] 9.6 fL Normal 6.4 - 10.8 fL FT [facility] Platelets (Bld) [#/Vol] 70.0 E9/L Low 150.0 - 500.0 E9/L [facility] Comment on above: Result Comment: Spec imen is not clotted/ No platelet clumps seen RBC (Bld) [#/Vol] 5.9 E12/L Normal 4.3 - 5.9 E12/L [facility] HemeAutoSS WBC corrected for nucl RBC Auto (Bld) [#/Vol] 12.1 E9/L High 4.0 - 11.0 E9/L [facility] HemeAutoSS Physician Orderon 05-29-2022 Physician Order [id number]:127 Normal [facility] eGFRon 05-29-2022 GFR/1.73 sq M.predicted among blacks MDRD (S/P/Bld) [Vol rate/Area] mL/min/{1.73_m2} Normal >=59 [facility] Comment on above: Order Comment: Order added by Discern Expert. Result Comment: eGFR is race adjusted. AA=. Performed By: #### 2 149323, [id number], 4155314, 8618477545, 21284560, 12817961 ####[facility] [address] [place] [address] GFR/1.73 sq M.predicted among non-blacks MDRD (S/P/Bld) [Vol rate/Area] mL/min/{1.73_m2} Normal >=59 [facility] Comment on above: Order Comment: Order added by Discern Expert. Result Comment: Multiple Coil Winder boogie kidney disease could be indicated at eGFR's of less than 60 mL/min/1.73m2. Kidney failure is indicated at less than 15 mL/min/1.73m2. Performed By: #### 2 182786, 9850127091, 7535739, 1448917078, 92709189, 66046505 ####[facility] [address] [place] [address] Cholesterol [Mass/volume] in Serum or PlasmaOrdered By: Alok Flanagan on 02-10-2022 Cholesterol [Mass/Vol] 139 mg/dL 140-200 [facility] Comment on above: Chol less than 200 m g/dl low riskChol 201-239 mg/dl borderline riskChol 240 mg/dl and greater high risk Cholesterol in LDL Calc [Mas s/Vol]Ordered By: Alok Flanagan on 02-10-2022 Cholesterol in LDL [Mass/Vol] 75 mg/dL 0-100 [facility] Comment on above: LDL ATP III CLASSIFI CATIONLDL less than 100 mg/dL OptimalLDL 100-129 mg/dL Near or above optimalLDL 130-159 mg/dL Borderline highLDL 160-189 mg/dL HighLDL greater than 189 mg/dL Very high Cholesterol in VLDL Calc [Ma ss/Vol]Ordered By: Alok Flanagan on 02-10-2022 Cholesterol in VLDL [Mass/Vol] 16 mg/dL [facility] No Panel InformationOrdered By: Alok Flanagan on 02-10-2022 25-Hydroxy Vitamin D Total 30.3 ng/mL 30-100 [facility] Comment on above: VITAMIN D STATUS 25( [place])VITAMIN D RANGE (ng/mL) Deficient <20 Insufficient 20 to <30Sufficient 30 to 100Reference: Adina MF,Serina NC, Nicanor CENTENO, et al. Evaluation,treatment, and prevention of vitamin D deficiency; an Endocrine Society clinical practice guideline. JCEM. 2010; 96(7):1911-30. Serum or plasma high density lipoprotein (HDL) cholesterol measurementOrdered By: Alok Flanagan on 02-10-2022 Cholesterol in HDL [Mass/Vol] 47 mg/dL 29-71 [facility] Comment on above: HDL CHOL ATP-III CLA SSIFICATION Cardiovascular RiskHDL > or equal to 60 mg/dL LOWHDL < 40 mg/dL HIGH Serum or plasma total choles terol/high density lipoprotein (HDL) cholesterol mass ratOrdered By: Alok Flanagan on 02-10-2022 Cholesterol.total/Chol esterol in HDL [Mass ratio] 3.0 {ratio} [facility] TSH DL <= 0.005 mIU/L QnOrde red By: Alok Flanagan on 02-10-2022 TSH Qn 0.30 m[IU]/L 0.45-5.33 [facility] Thyroxine (T4) free [Mass/vo lume] in Serum or PlasmaOrdered By: Alok Flanagan on 02-10-2022 Free T4 [Mass/Vol] 0.80 ng/dL 0.61-1.12 [facility] Triglyceride [Mass/volume] i n Serum or PlasmaOrdered By: Alok Flanagan on 02-10-2022 Triglyceride [Mass/Vol] 84 mg/dL 35-149 [facility] Comment on above: TRIG ATP III CLASSIF ICATIONTRIG less than 150 mg/dL NormalTRIG 150-199 mg/dL Borderline highTRIG 200-500 mg/dL High TRIG greater than 500 mg/dL Very highStandard traceable to the Center for Disease Conrtrol and Prevention (CDC) test method. Albumin [Mass/volume] in Ser um or PlasmaOrdered By: Rafat Paulino on 02-09-2022 Albumin [Mass/Vol] 4.1 g/dL 3.2-5.5 [facility] Amphetamine Screen Ql (U)Ord ered By: Rafat Paulino on 02-09-2022 Amphetamines Ql (U) Negative Negative [facility] Automated erythrocytes count in urine sediment (number/area)Ordered By: Rafat Paulino on 02-09-2022 RBC Auto (Urine sed) [#/Area] 0-1 [HPF] [facility] Automated leukocytes count i n urine sediment (number/area)Ordered By: Rafat Paulino on 02-09-2022 WBC Auto (Urine sed) [#/Area] 1-2 [HPF] [facility] Barbiturates [Presence] in U rineOrdered By: Rafat Paulino on 02-09-2022 Barbiturates Ql (U) Negative Negative [facility] Basophils Auto (Bld) [#/Vol] Ordered By: Rafat Paulino on 02-09-2022 Basophils (Bld) [#/Vol] 0.0 10*3/uL 0.0-0.2 [facility] Basophils/100 WBC Auto (Bld) Ordered By: Rafat Paulino on 02-09-2022 Basophils/100 WBC (Bld) 0.4 % [facility] Benzodiazepines [Presence] i n UrineOrdered By: Rafat Paulino on 02-09-2022 Benzodiazepines Ql (U) Negative Negative [facility] Bilirubin Test strip Ql (U)O rdered By: Rafat Paulino on 02-09-2022 Bilirubin Ql (U) Negative Negative [facility] Blood hemoglobin measurement (mass/volume)Ordered By: Rafat Paulino on 02-09-2022 Hemoglobin (Bld) [Mass/Vol] 16.6 g/dL 13.0-17.0 [facility] Blood leukocytes automated c ount (number/volume)Ordered By: Rafat Paulino on 02-09-2022 WBC (Bld) [#/Vol] 9.5 10*3/uL 4.5-11.0 [facility] COVID-19 SOFIAOrdered By: Antoni Paulino on 02-09-2022 SARS-CoV+SARS-CoV-2 (COVID-19) Ag IA.rapid Ql (Resp) Negative Negative [facility] Comment on above: This is a duplicate Janet SARS Antigen (LINDSAY) result to be used for statistical tracking purpose only. Cannabinoids [Presence] in U rine by Screen methodOrdered By: Rafat Paulino on 02-09-2022 Cannabinoids Screen Ql (U) Positive Negative [facility] Comment on above: These are unconfirme d results and should not be used for legal purposes. Drug Cut-Off Concentration: AMPH 1000 ng/mL AGUILAR 200 ng/mL CELIA 200 ng/mL COCM 300 ng/mL OP 300 ng/mL PCP 25 ng/mL THC 20 ng/mL Color Auto (U)Ordered By: Antoni Paulino on 02-09-2022 Color (U) Yellow Yellow [facility] Creatinine and Glomerular fi ltration rate.predicted panel (S/P/Bld)Ordered By: Rafat Paulino on 02-09-2022 Creatinine [Mass/Vol] 1.00 mg/dL 0.64-1.27 [facility] Eosinophils Auto (Bld) [#/Vo l]Ordered By: Rafat Paulino on 02-09-2022 Eosinophils (Bld) [#/Vol] 0.1 10*3/uL 0.0-0.45 [facility] Eosinophils/100 WBC Auto (Bl d)Ordered By: Rafat Paulino on 02-09-2022 Eosinophils/100 WBC (Bld) 1.2 % [facility] Erythrocyte distribution wid th Auto (RBC) [Ratio]Ordered By: Rafat Paulino on 02-09-2022 Erythrocyte distribution width (RBC) [Ratio] 13.6 % 12.0-14.8 [facility] Estimated glomerular filtrat ion rate (GFR) non- AmericanOrdered By: Rafat Paulino on 02-09-2022 GFR/1.73 sq M.predicted among non-blacks MDRD (S/P/Bld) [Vol rate/Area] > 60 mL/Min [facility] Globulin Calc (S) [Mass/Vol] Ordered By: Rafat Paulino on 02-09-2022 Globulin (S) [Mass/Vol] 3.1 g/dL [facility] Hematocrit Auto (Bld) [Volum e fraction]Ordered By: Rafat Paulino on 02-09-2022 Hematocrit (Bld) [Volume fraction] 50.1 % 38.8-50.0 [facility] Ketones Auto test strip (U) [Mass/Vol]Ordered By: Rafat Paulino on 02-09-2022 Ketones (U) [Mass/Vol] Negative Negative [facility] Laboratory - Drug toxicology Ordered By: Rafat Paulino on 02-09-2022 Opiates Ql (U) Negative Negative [facility] Laboratory - Hematology and Cell countsOrdered By: Rafat Paulino on 02-09-2022 Nucleated RBC/100 WBC (Bld) [Ratio] 0.1 % 0-0.5 [facility] Laboratory - UrinalysisOrder ed By: Rafat Paulino on 02-09-2022 Hyaline casts LM Ql (Urine sed) 0-8 [LPF] [facility] Lymphocytes Auto (Bld) [#/Vo l]Ordered By: Rafat Paulino on 02-09-2022 Lymphocytes (Bld) [#/Vol] 3.0 10*3/uL 1.00-4.8 [facility] Lymphocytes/100 WBC Auto (Bl d)Ordered By: Rafat Paulino on 02-09-2022 Lymphocytes/100 WBC (Bld) 30.9 % [facility] MCH Auto (RBC) [Entitic mass ]Ordered By: Rafat Paulino on 02-09-2022 MCH (RBC) [Entitic mass] 30.1 pg 27.5-35.2 [facility] MCHC Auto (RBC) [Mass/Vol]Or dered By: Rafat Paulino on 02-09-2022 MCHC (RBC) [Mass/Vol] 33.1 g/dL 32.5-35.6 [facility] MCV Auto (RBC) [Entitic vol] Ordered By: Rafat Paulino on 02-09-2022 MCV (RBC) [Entitic vol] 90.8 fL 83.5-101 [facility] Monocytes Auto (Bld) [#/Vol] Ordered By: Rafat Paulino on 02-09-2022 Monocytes (Bld) [#/Vol] 0.7 10*3/uL 0.0-0.8 [facility] Monocytes/100 WBC Auto (Bld) Ordered By: Rafat Paulino on 02-09-2022 Monocytes/100 WBC (Bld) 7.5 % [facility] Neutrophils Auto (Bld) [#/Vo l]Ordered By: Rafat Paulino on 02-09-2022 Neutrophils (Bld) [#/Vol] 5.7 10*3/uL 1.8-7.7 [facility] Neutrophils/100 WBC Auto (Bl d)Ordered By: Rafat Paulino on 02-09-2022 Neutrophils/100 WBC (Bld) 60.0 % [facility] Nitrite Test strip Ql (U)Ord ered By: Rafat Paulino on 02-09-2022 Nitrite Ql (U) Negative Negative [facility] No Panel InformationOrdered By: Rafat Paulino on 02-09-2022 SARS Antigen (LFIA) [facility] Estimated GFR () > 60 mL/Min [facility] Comment on above: GFR estimated refere nce range: According to KDOQI guidelines, <60 ml/min/1.73m2 is sufficient to diagnose a patient with chronic kidney disease. Pharmacy Creatinine Clearance (Chem 113.90 [facility] Phencyclidine Screen Ql (U)O rdered By: Rafat Paulino on 02-09-2022 Phencyclidine Ql (U) Negative Negative [facility] Platelet mean volume Auto (B ld) [Entitic vol]Ordered By: Rafat Paulino on 02-09-2022 Platelet mean volume (Bld) [Entitic vol] 8.0 fL 6.6-10.1 [facility] Platelets Auto (Bld) [#/Vol] Ordered By: Rafat Paulino on 02-09-2022 Platelets (Bld) [#/Vol] 243 10*3/uL 150-450 [facility] Protein Auto test strip (U) [Mass/Vol]Ordered By: Rafat Paulino on 02-09-2022 Protein (U) [Mass/Vol] Negative Negative [facility] Protein [Mass/volume] in Ser um or PlasmaOrdered By: Rafat Paulino on 02-09-2022 Protein [Mass/Vol] 7.2 g/dL 6.1-7.9 [facility] RBC Auto (Bld) [#/Vol]Ordere d By: Rafat Paulino on 02-09-2022 RBC (Bld) [#/Vol] 5.52 10*6/uL 3.90-5.60 [facility] Serum or plasma alanine hoffman otransferase measurement without P-5'-P (enzymatic activiOrdered By: Rafat Paulino on 02-09-2022 ALT No additional P-5'-P [Catalytic activity/Vol] 52 U/L 10-60 [facility] Serum or plasma albumin/glob ulin mass ratioOrdered By: Rafat Paulino on 02-09-2022 Albumin/Globulin [Mass ratio] 1.3 {ratio} [facility] Serum or plasma alkaline annette sphatase measurement (enzymatic activity/volume)Ordered By: Rafat Paulino on 02-09-2022 ALP [Catalytic activity/Vol] 55 U/L 32-92 [facility] Serum or plasma aspartate am inotransferase measurement (enzymatic activity/volume)Ordered By: Rafat Paulino on 02-09-2022 AST [Catalytic activity/Vol] 27 U/L 10-42 [facility] Serum or plasma calcium darien urement (mass/volume)Ordered By: Rafat Paulino on 02-09-2022 Calcium [Mass/Vol] 8.9 mg/dL 8.2-10.2 [facility] Serum or plasma chloride des surement (moles/volume)Ordered By: Rafat Paulino on 02-09-2022 Chloride [Moles/Vol] 101 mmol/L 95-114 [facility] Serum or plasma ethanol darien urement (mass/volume)Ordered By: Rafat Paulino on 02-09-2022 Ethanol [Mass/Vol] mg/dL [facility] Ethanol [Mass/Vol] TNP [facility] Comment on above: Test not performed Serum or plasma glucose darien urement (mass/volume)Ordered By: Rafat Paulino on 02-09-2022 Glucose [Mass/Vol] 82 mg/dL 70-100 [facility] Comment on above: ADA recommended refe rence rangeRandom Glucose Reference Range is dependent on time and content of last meal. Glucose of more than 200 mg/dL in a nonstressed, ambulatory subject supports the diagnosis of Diabetes Mellitus. Serum or plasma potassium me asurement (moles/volume)Ordered By: Rafat Paulino on 02-09-2022 Potassium [Moles/Vol] 4.2 mmol/L 3.5-5.1 [facility] Serum or plasma sodium measu rement (moles/volume)Ordered By: Rafat Paulino on 02-09-2022 Sodium [Moles/Vol] 138 mmol/L 136-146 [facility] Serum or plasma total biliru bin measurement (mass/volume)Ordered By: Rafat Paulino on 02-09-2022 Bilirubin [Mass/Vol] 0.7 mg/dL 0.3-1.2 [facility] Serum or plasma total carbon dioxide measurement (moles/volume)Ordered By: Rafat Paulino on 02-09-2022 CO2 [Moles/Vol] 26.9 mmol/L 22.0-30.0 [facility] Serum or plasma urea nitroge n measurement (mass/volume)Ordered By: Rafat Paulino on 02-09-2022 Urea nitrogen [Mass/Vol] 9 mg/dL 9-23 [facility] Specific gravity Auto test s trip (U) [Rel density]Ordered By: Rafat Paulino on 02-09-2022 Specific gravity (U) [Rel density] 1.019 1.001-1.03 0 [facility] Squamous epithelial cells de tection in urine sediment by light microscopyOrdered By: Rafat Paulino on 02-09-2022 Epithelial cells.squamous LM Ql (Urine sed) None seen [HPF] [facility] Urine bacteria detection by automated methodOrdered By: Rafat Paulino on 02-09-2022 Bacteria Auto Ql (U) None seen None Seen [facility] Urine clarity by refractomet ry automatedOrdered By: Rafat Paulino on 02-09-2022 Clarity Refractometry automated (U) Clear Clear [facility] Urine cocaine detectionOrder ed By: Rafat Paulino on 02-09-2022 Cocaine Ql (U) Negative Negative [facility] Urine glucose measurement by automated test strip (mass/volume)Ordered By: Rafat Paulino on 02-09-2022 Glucose Auto test strip (U) [Mass/Vol] Normal mg/dL Normal [facility] Urine hemoglobin detection b y automated test stripOrdered By: Rafat Paulino on 02-09-2022 Hemoglobin Auto test strip Ql (U) Negative Negative [facility] Urine leukocyte esterase det ection by automated test stripOrdered By: Rafat Paulino on 02-09-2022 Leukocyte esterase Auto test strip Ql (U) 1+ Negative [facility] Urobilinogen Auto test strip (U) [Mass/Vol]Ordered By: Rafat Paulino on 02-09-2022 Urobilinogen (U) [Mass/Vol] Normal mg/dL Normal [facility] pH Auto test strip (U)Ordere d By: Rafat Paulino on 02-09-2022 pH (U) 7.5 [pH] 5.0-9.0 [facility] Vital Signs Date Time Vital Sign Value Performing Clinician Lisa fernandez 02-10-2025 07:30-0400 Body temperature 98.2 [degF] Shawn Paris III DO Work Phone: [facility] 02-10-2025 07:30-0400 Diastolic blood pressure 74 mm[Hg] Shawn Paris III DO Work Phone: [facility] 02-10-2025 07:30-0400 Heart rate 108 /min Shawn Paris III DO Work Phone: [facility] 02-10-2025 07:30-0400 Respiratory rate 16 /min Shawn Paris III DO Work Phone: [facility] 02-10-2025 07:30-0400 SaO2% (BldA) [Mass fraction] 95 % Shawn Paris III DO Work Phone: [facility] 02-10-2025 07:30-0400 Systolic blood pressure 102 mm[Hg] Shawn Paris III DO Work Phone: [facility] 02-08-2025 14:43-0400 Body height 185.42 cm Shawn Paris III DO Work Phone: [facility] 02-08-2025 05:23-0400 Body weight 95.43 kg Shawn Paris III DO Work Phone: [facility] 02-08-2025 03:23-0400 Diastolic blood pressure 78 mm[Hg] Shawn Paris III DO Work Phone: [facility] 02-08-2025 03:23-0400 Heart rate 85 /min Shawn Paris III DO Work Phone: [facility] 02-08-2025 03:23-0400 Respiratory rate 18 /min Shawn Paris III DO Work Phone: [facility] 02-08-2025 03:23-0400 SaO2% (BldA) [Mass fraction] 99 % Shawn Paris III DO Work Phone: [facility] 02-08-2025 03:23-0400 Systolic blood pressure 131 mm[Hg] Shawn Paris III DO Work Phone: [facility] 02-07-2025 23:58-0400 Body height 185.42 cm Shawn Paris III DO Work Phone: [facility] 02-07-2025 23:58-0400 Body temperature 98.3 [degF] Shawn Paris III DO Work Phone: [facility] 02-07-2025 23:58-0400 Body weight 95.25 kg Shawn Paris III DO Work Phone: [facility] 06-21-2024 15:19-0400 Diastolic blood pressure 70 mm[Hg] DO Shawn Paris III Work Phone: [facility] 06-21-2024 15:19-0400 Heart rate 62 /min DO Shawn Paris III Work Phone: [facility] 06-21-2024 15:19-0400 Respiratory rate 16 /min DO Shawn Paris III Work Phone: [facility] 06-21-2024 15:19-0400 SaO2% (BldA) [Mass fraction] 99 % DO Shawn Paris III Work Phone: [facility] 06-21-2024 15:19-0400 Systolic blood pressure 129 mm[Hg] DO Shawn Paris III Work Phone: [facility] 06-21-2024 13:10-0400 Body height 187.96 cm DO Shawn Paris III Work Phone: [facility] 06-21-2024 13:10-0400 Body temperature 98.1 [degF] DO Shawn Paris III Work Phone: [facility] 06-21-2024 13:10-0400 Body weight 95.25 kg DO Shawn Paris III Work Phone: [facility] 12-11-2023 22:40-0500 Diastolic blood pressure 60 mm[Hg] MD Nish Chou Work Phone: [facility] 12-11-2023 22:40-0500 Heart rate 56 /min MD Nish Chou Work Phone: [facility] 12-11-2023 22:40-0500 Respiratory rate 16 /min MD Nish Chou Work Phone: [facility] 12-11-2023 22:40-0500 SaO2% (BldA) [Mass fraction] 99 % MD Nish Chou Work Phone: [facility] 12-11-2023 22:40-0500 Systolic blood pressure 118 mm[Hg] MD Nish Chou Work Phone: [facility] 12-11-2023 21:11-0500 Body height 187.96 cm MD Nish Chou Work Phone: [facility] 12-11-2023 21:11-0500 Body temperature 98.1 [degF] MD Nish Chou Work Phone: [facility] 12-11-2023 21:11-0500 Body weight 99.5 kg MD Nish Chou Work Phone: [facility] 08-11-2022 08:22-0400 Diastolic blood pressure 67 mm[Hg] Nish Lopez [facility] 08-11-2022 08:22-0400 Systolic blood pressure 108 mm[Hg] Nish Lopez [facility] 08-11-2022 08:19-0400 Body temperature 97.7 [degF] Nish Lopez [facility] 08-11-2022 08:19-0400 Heart rate 89 /min Nish Lopez [facility] 08-11-2022 08:19-0400 Respiratory rate 18 /min Nish Lopez [facility] 08-11-2022 08:19-0400 SaO2% (BldA) [Mass fraction] 98 % Nish Lopez [facility] 02-12-2022 07:30-0400 Body temperature 98.1 [degF] DO Shawn Paris III Work Phone: [facility] 02-12-2022 07:30-0400 Diastolic blood pressure 81 mm[Hg] DO Shawn Paris III Work Phone: [facility] 02-12-2022 07:30-0400 Heart rate 68 /min DO Shawn Paris III Work Phone: [facility] 02-12-2022 07:30-0400 Respiratory rate 16 /min DO Shawn Paris III Work Phone: [facility] 02-12-2022 07:30-0400 SaO2% (BldA) [Mass fraction] 97 % DO Shawn Paris III Work Phone: [facility] 02-12-2022 07:30-0400 Systolic blood pressure 132 mm[Hg] DO Shawn Paris III Work Phone: [facility] 02-10-2022 14:12-0400 Body height 185.42 cm DO Shawn Paris III Work Phone: [facility] 02-09-2022 16:35-0400 Body mass index (BMI) [Ratio] 22.1 kg/m2 DO Shawn Paris III Work Phone: [facility] 02-09-2022 16:35-0400 Body weight 76.2 kg DO Shawn Paris III Work Phone: [facility] 02-09-2022 15:53-0400 Diastolic blood pressure 69 mm[Hg] DO Shawn Paris III Work Phone: [facility] 02-09-2022 15:53-0400 Heart rate 61 /min DO Shawn Paris III Work Phone: [facility] 02-09-2022 15:53-0400 Respiratory rate 19 /min DO Sahwn Paris III Work Phone: [facility] 02-09-2022 15:53-0400 SaO2% (BldA) [Mass fraction] 100 % DO Shawn Paris III Work Phone: [facility] 02-09-2022 15:53-0400 Systolic blood pressure 109 mm[Hg] DO Shawn Paris III Work Phone: [facility] 02-09-2022 12:29-0400 Body height 185.42 cm DO Shawn Paris III Work Phone: [facility] 02-09-2022 12:29-0400 Body mass index (BMI) [Ratio] 21.7 kg/m2 DO Shawn Paris III Work Phone: [facility] 02-09-2022 12:29-0400 Body temperature 98.3 [degF] DO Shawn Paris III Work Phone: [facility] 02-09-2022 12:29-0400 Body weight 74.55 kg DO Shawn Paris III Work Phone: [facility] Encounters Encounter Date Encounter Type Care Provider Facility Start: 06-15-2025 ambulatory Andry Sherman acility:[facility] Start: 02-08-2025 Non-patient / Non-visit Jonathanan d Paris III DO Work Phone: [facility] Work Phone: Start: 02-08-2025 End: 02-10-2025 Evaluation and management of inpatient Shawn Paris III DO Work Phone: [facility] Work Phone: Start: 06-21-2024 End: 06-21-2024 Emergency department patient visit DO Shawn Paris III Work Phone: [facility] Work Phone: Start: 12-11-2023 End: 12-11-2023 Emergency department patient visit MD Nish Chou Work Phone: [facility] Work Phone: Start: 08-11-2022 End: 08-11-2022 Emergency department patient visit Nish Lopez Facility:[facility] Start: 08-11-2022 End: 08-11-2022 Emergency department patient visit Nish Lopez [facility] Start: 05-29-2022 End: 05-30-2022 ambulatory DONG HUNT Facility:[facility] Start: 05-29-2022 End: 05-29-2022 Patient encounter procedure DONG HUNT [facility] Start: 05-20-2022 End: 05-21-2022 ambulatory [facility] Facility:[facility] Start: 05-20-2022 End: 05-20-2022 Off-Site [facility] Start: 02-09-2022 End: 02-12-2022 Evaluation and management of inpatient DO Shawn Paris III Work Phone: [facility] Procedures Date Procedure Procedure Detail Performing Clinician Start: 02-08-2025 Plain chest X-ray [place] nd Paris III DO Work Phone: Start: 06-21-2024 CT cervical spine wi thout contrast DO Shawn Paris III Work Phone: Start: 06-21-2024 CT of head without contrast DO Shawn Paris III Work Phone: Start: 06-21-2024 X-ray of both knees DO Shawn Paris III Work Phone: Start: 06-21-2024 Plain X-ray of right hip DO Shawn Paris III Work Phone: Start: 06-21-2024 Plain chest X-ray DO Ro lland Paris III Work Phone: Start: 06-21-2024 Plain X-ray of right tibia and right fibula DO Shawn Paris III Work Phone: Start: 12-11-2023 SARS-CoV-2, Influenz a & RSV (PCR) MD Nish Chou Work Phone: Start: 02-09-2022 SARS Antigen (LFIA) DO Shawn Paris III Work Phone: Appendectomy [facility] Plan of Treatment Date Care Activity Detail Author Start: 02-10-2025 [facility] Start: 02-09-2025 [facility] Start: 02-08-2025 End: 02-08-2025 [facility] Start: 02-08-2025 Hospital admission [facility] Start: 02-08-2025 Plain chest X-ray XR chest 1V portab [facility] Start: 02-08-2025 XR Chest Single view [facility] Start: 06-21-2024 [facility] Start: 12-11-2023 Plain chest X-ray XR chest 1V portab [facility] Start: 12-11-2023 XR Chest Single view [facility] Basophils [#/volume] in Blood by Automated count [facility] Basophils [#/volume] in Blood by Automated count [facility] Basophils/100 leukoc ytes in Blood by Automated count [facility] Basophils/100 leukoc ytes in Blood by Automated count [facility] Eosinophils/100 leukocytes in Blood by Automated count [facility] Eosinophils/100 leukocytes in Blood by Automated count [facility] Erythrocyte distribu tion width [Ratio] by Automated count [facility] Erythrocyte distribu tion width [Ratio] by Automated count [facility] Erythrocytes [#/volu me] in Blood [facility] Erythrocytes [#/volu me] in Blood [facility] Hematocrit [Volume Fraction] of Blood [facility] Hematocrit [Volume Fraction] of Blood [facility] Hemoglobin [Mass/vol ume] in Blood [facility] Hemoglobin [Mass/vol ume] in Blood [facility] Leukocytes [#/volume ] corrected for nucleated erythrocytes in Blood by Automated coun [facility] Leukocytes [#/volume ] corrected for nucleated erythrocytes in Blood by Automated coun [facility] Leukocytes [#/volume ] in Blood [facility] Leukocytes [#/volume ] in Blood [facility] Lymphocytes [#/volum e] in Blood by Automated count [facility] Lymphocytes [#/volum e] in Blood by Automated count [facility] Lymphocytes/100 leukocytes in Blood by Automated count [facility] Lymphocytes/100 leukocytes in Blood by Automated count [facility] MCH [Entitic mass] b y Automated count [facility] MCH [Entitic mass] b y Automated count [facility] MCHC [Mass/volume] b y Automated count [facility] MCHC [Mass/volume] b y Automated count [facility] MCV [Entitic volume] by Automated count [facility] MCV [Entitic volume] by Automated count [facility] Monocytes [#/volume] in Blood by Automated count [facility] Monocytes [#/volume] in Blood by Automated count [facility] Monocytes/100 leukoc ytes in Blood by Automated count [facility] Monocytes/100 leukoc ytes in Blood by Automated count [facility] Neutrophils [#/volum e] in Blood by Automated count [facility] Neutrophils [#/volum e] in Blood by Automated count [facility] Neutrophils/100 leukocytes in Blood by Automated count [facility] Neutrophils/100 leukocytes in Blood by Automated count [facility] Nucleated erythrocyt es [Presence] in Blood by Automated count [facility] Nucleated erythrocyt es [Presence] in Blood by Automated count [facility] Patient Education [facility] Work Phone: Patient referral [facility] Work Phone: Platelet mean volume [Entitic volume] in Blood by Automated count [facility] Platelet mean volume [Entitic volume] in Blood by Automated count [facility] Platelets [#/volume] in Blood [facility] Platelets [#/volume] in Blood [facility] Immunizations Immunization Date Immunization Notes Care Provider Fa lashaun 05-12-2017 tetanus toxoid, redu jose diphtheria toxoid, and acellular pertussis vaccine, adsorbed [facility] Comment on above: Early/Late Reason: N ursing Judgment Result Comment: LEFT DELTOID Payers Date Payer Category Payer Self-pay [id number] 2022 Unknown [id number] 2021 Medicaid [id number] 1990 Unknown [id number] 1990 Unknown [id number] 1990 Unknown [id number] Unknown [facility] [id number] Unknown Regular Auto/Liability [id number] Unknown [id number] Unknown [id number] Unknown [id number] Social History Date Type Detail Facility Tobacco smoking stat [facility] Unknown if ever smoked [facility] Start: 1990 Sex Assigned At Male [facility] Start: 02-09-2022 End: 02-08-2025 Tobacco smoking status NHIS Smoker (finding) [facility] Start: 08-29-2018 End: 05-21-2022 Tobacco smoking status [facility] At [facility] Start: 02-08-2025 End: 02-10-2025 Sex Male (finding) [facility] Goals Date Patient Goal Desired Activity /State Functional Status Date Assessment Result Facility 02-10-2025 Functional status Patient at Baseline [facility] Work Phone: 02-08-2025 Functional status Disability Sta tus Patient at Baseline [facility] Work Phone: 08-11-2022 Functional Status N/A [facility] 02-12-2022 Functional status Patient at Baseline [facility] Work Phone: Mental Status Date Assessment Result Facility 02-10-2025 Cognitive function Cognitive Sta tus Patient at Baseline [facility] Work Phone: 02-12-2022 Cognitive function Cognitive Sta tus Patient at Baseline [facility] Work Phone: Clinical Notes 02-10-2022 to 02-10-2025 Note Date & Type Note Facility 02-10-2025 Discharge summary [facility] 02-10-2025 Progress note Note Date/Time February 10, 2025 7:04am [facility] [address] [place] [address] Psychiatry Progress Note Signed Patient: Luan Jesus MR#: [id number] : 1990 Acct:[id number] Age/Sex: 34 / M Adm Date: 5 Loc: Room: [address] [place] [address] Type : ADM IN Attending Dr: Andry Molina MD Copies to: ~ Date of Service: 02/09/2025 Subjective Subjective Narrative: Patient stated that he misses his children and wanted to be back on meds. He hasbeen participating in groups and said that Vibriid was always effective for him.He rated his anxiety at 5 out of 10 with 10 being the worst. He is open to attending outpatient care. He provided consent to speak to his mother which we will do prior to his discharge to ensure a safe discharge plan. Mental Status: mental status grossly normal Mood: Anxious mood Affect: mood congruent affect Speech and Movement: speech and movement normal and speech clear Attitude: cooperative Thought Process: normal Thought Content: Denied hallucinations, no homicidality and no suicidality Insight: Fair Judgment: Fair Exam Physical Exam Vital Signs: Temp Pulse Resp BP Pulse Ox O2 Del Method 98.1 F 63 18 106/50 L 97 Room Air 02/09/25 23:30 02/09/25 23:30 02/09/25 23:30 02/09/25 23:30 02/09/25 23:30 02/09/25 23:30 Assessment/Plan Assessment/Plan (1) Major depressive disorder, recurrent severe without psychotic features: Plan Patient reprots that he is going through a lot of stress Plan: -Continue Vilazodone, Seroquel and gabapentin -Patient noted to have leukocytosis in the ED, white blood cell count of 19.6, repeat vital checks -Continue to monitor mental status -Monitor suicidal behaviors for safety of self (15-minute face check). -Encourage medication adherence. Risks, benefits, and alternatives of treatment explained -Recommend? attending groups and psychoeducation for building coping skills. -Risks, benefits and indications of medications were discussed with the patient.? -No abnormal movements noted on exam. AIMS is Zero. -Involve friends/family members to coordinate care and ensure appropriate outpatient appointments are scheduled prior to discharge. Current medications: Vilazodone 20 mg daily Seroquel 100 mg twice daily Gabapentin 600 mg 4 times daily Documented By: Andry Molina MD 5 [id number] Signed By: <Electronically signed by Andry Molina MD> 02/10/25 0704 [facility] Work Phone: [phone]) 904-208904-26-2025 [place] [address] Psychiatry Progress Note Signed Patient: Luan Jesus MR#: [id number] : 1990 Acct:[id number] Age/Sex: 34 / M Adm Date: 5 Loc: Room: [address] [place] [address] Type : ADM IN Attending Dr: Andry Molina MD Copies to: ~ Date of Service: 02/09/2025 Subjective Subjective Narrative: Patient stated that he misses his children and wanted to be back on meds. He hasbeen participating in groups and said that Vibriid was always effective for him.He rated his anxiety at 5 out of 10 with 10 being the worst. He is open to attending outpatient care. He provided consent to speak to his mother which we will do prior to his discharge to ensure a safe discharge plan. Mental Status: mental status grossly normal Mood: Anxious mood Affect: mood congruent affect Speech and Movement: speech and movement normal and speech clear Attitude: cooperative Thought Process: normal Thought Content: Denied hallucinations, no homicidality and no suicidality Insight: Fair Judgment: Fair Exam Physical Exam Vital Signs: Temp Pulse Resp BP Pulse Ox O2 Del Method 98.1 F 63 18 106/50 L 97 Room Air 02/09/25 23:30 02/09/25 23:30 02/09/25 23:30 02/09/25 23:30 02/09/25 23:30 02/09/25 23:30 Assessment/Plan Assessment/Plan (1) Major depressive disorder, recurrent severe without psychotic features: Plan Patient reprots that he is going through a lot of stress Plan: -Continue Vilazodone, Seroquel and gabapentin -Patient noted to have leukocytosis in the ED, white blood cell count of 19.6, repeat vital checks -Continue to monitor mental status -Monitor suicidal behaviors for safety of self (15-minute face check). -Encourage medication adherence. Risks, benefits, and alternatives of treatment explained -Recommend? attending groups and psychoeducation for building coping skills. -Risks, benefits and indications of medications were discussed with the patient.? -No abnormal movements noted on exam. AIMS is Zero. -Involve friends/family members to coordinate care and ensure appropriate outpatient appointments are scheduled prior to discharge. Current medications: Vilazodone 20 mg daily Seroquel 100 mg twice daily Gabapentin 600 mg 4 times daily Documented By: Andry Molina MD 5 0701 Signed By: 02/10/25 0704 [facility]04-24-2025 History and physical note Author Andry gomez [facility] Note Date/Time February 08, 2025 10: 51am [facility] [address] [place], [place] [id number] Psychiatry H&P Signed Patient: Luan Jesus MR#: [id number] : 1990 Acct:[id number] Age/Sex: 34 / M Adm Date: 5 Loc: 1S Room: 0Y0092-2 Type: ADM IN Attending Dr: Andry Molina MD Copies to: MD Jonathna SaundersDaniela Paris III, ~ Date of Service: 02/08/2025 HPI Narrative Narrative: Mr. Jesus is a 34 male presenting with suicidal ideation and a plan with a history of depression and anxiety with a history of hepatitis C According to ER admission note patient presents with suicidal ideation with plan. He states that his plan is to slit both of his wrist. He does have a history of depression, he is on multiple psychotropic medications, Seroquel, lurasidone, gabapentin. He states that multiple years ago he did have a suicide attempt when he swallowed a bunch of pills that he had . He denies ingestion today, denies deliberate self-harm. He denies homicidal ideation or plan. According to admission note Pt stated I came to the ER before I hurt myself. Pt states Meds did help with these feelings in the past. Patient was personally seen by me on the day of the encounter. I reviewed the history and performed the messina elements of the assessment. I formulated the planof care and confirmed this with the medical student as noted below At the time of the interview, pt presented as anxious. When asked patient about what led up to his hospitalization he said everything. Patient also said gait has been building up for the last couple weeks. Patient would not further clarify what these comments meant. Patient confirmed he presented with SI and a plan to slit his wrists. Patient said he has been not taking his medication for the last 6 months because his insurance was not covering them. Patient rated his anxiety and depression as a 7/10. Patient confirmed he was still having SI when he went to bed last night and he was worried about hurting himself. Patient denied having any plan in place. Patient denied HI and AVH. 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 Mental Status: mental status grossly normal Mood: Anxious Affect: Mood congruent Speech and Movement: speech and movement normal Thought Process: normal Thought Content: Denies paranoid or delusional thoughts. Denied hallucinations, no homicidality and positive suicidality. Does not appear to be responding to internal stimuli. Insight: limited Judgment: limited Patient strengths and protective factors: Supportive family and friends and seeking help Patient's weaknesses and risk factors: Making unhealthy decisions and medicationcompliance Attitude for change: Fair AIMS: No abnormal movements noted. Score 0. Review of Systems Constitutional: Pt denies fatigue, malaise. Neuro: Denies dizziness/lightheadedness. HEENT: Denies vision/hearing changes. Pulmonary: Denies SOB, dyspnea, cough, wheezing. Cardiac: Denies chest pain/pressure. Denies edema, palpitations. GI: Denies abdominal pain, heartburn, N/V. Denies constipation and diarrhea : Denies dysuria, hematuria, polyuria. Physical exam General: not in any acute distress Skin: intact HEENT: head atraumatic, face symmetrical. Pulm: Breathing normally without excessive effort Cardio: Regular rate and rhythm Abdomen: Normal inspection Musculoskeletal: Moves all extremities, normal strength all extremities. Neuro: Pt alert, oriented x3. CNI: Smell intact CNII: Visual echeverria intact CNIII,IV,: EOM intact, no nystagmus. CNV: Sensation intact to light touch. CNVII: Raises eyebrows, smile/frown, puff out cheeks symmetrically. CNVIII: Hearing intact bilaterally. CNIX,X: Voice normal, soft palate elevation normal, symmetrical. CNXI: Shoulder shrug strong, equal bilaterally. CNXII: Tongue protrusion midline Review of Systems Review of Systems All other systems reviewed & are negative unless noted below or in HPI [facility] Medical History Depression Problem List clean-up per request of Phys. EHR Cmte Surgical History History of appendectomy Problem List clean-up per request of Phys. EHR Cmte Social History Smoking Status: Current every day smoker Tobacco Type: cigarettes Substance Use Type: Marijuana Meds Medications and Allergies Allergies diphtheria, pertussis, tetanus vacc Allergy (Verified 02/07/25 23:55) Seizure Home Medications gabapentin 600 mg tablet 600 mg PO QID 02/07/25 [History Confirmed 02/07/25] quetiapine 50 mg tablet 100 mg PO BID 02/07/25 [History Confirmed 02/07/25] vilazodone 20 mg tablet 20 mg PO DAILY 02/07/25 [History Confirmed 02/07/25] Exam Physical Exam Vital Signs: Temp Pulse Resp BP Pulse Ox O2 Del Method 98.7 F 76 18 145/83 H 95 Room Air 02/08/25 05:23 02/08/25 05:23 02/08/25 05:23 02/08/25 05:23 02/08/25 05:23 02/08/25 05:23 Results - Psychiatry Labs 02/08/25 01:54 02/08/25 01:54 Psychiatry Labs: 02/08/25 02/08/25 01:54 03:24 RBC 5.65 H Hgb 17.2 H Hct 50.4 H MCV 89.2 MCH 30.4 MCHC 34.1 RDW 13.3 Plt Count 268 MPV 8.3 Sodium 136 Potassium 4.0 Chloride 106 Carbon Dioxide 22.5 Anion Gap 11.5 BUN 12 Creatinine 1.14 Calcium 8.9 Total Bilirubin 0.7 AST 32 ALT 79 H Alkaline Phosphatase 91 Total Protein 7.7 Albumin 4.1 Urine Color Yellow Urine Appearance Clear Urine pH 5.5 Ur Specific [place] 1.018 Urine Protein Negative Urine Glucose (UA) Normal Urine Ketones Negative Urine Occult Blood Negative Urine Nitrite Negative Ur Leukocyte Esterase Negative Assessment/Plan (1) Major depressive disorder, recurrent severe without psychotic features: Plan 34 male presenting with suicidal ideation and a plan to slit his wrist Plan: -Continue Vilazodone, Seroquel and gabapentin -Patient noted to have leukocytosis in the ED, white blood cell count of 19.6, repeat vital checks -Continue to monitor mental status -Monitor suicidal behaviors for safety of self (15-minute face check). -Encourage medication adherence. Risks, benefits, and alternatives of treatment explained -Recommend? attending groups and psychoeducation for building coping skills. -Risks, benefits and indications of medications were discussed with the patient.? -No abnormal movements noted on exam. AIMS is Zero. -Involve friends/family members to coordinate care and ensure appropriate outpatient appointments are scheduled prior to discharge. Current medications: Vilazodone 20 mg daily Seroquel 100 mg twice daily Gabapentin 600 mg 4 times daily Documented By: Andry Molina MD 5 [id number] Signed By: <Electronically signed by Andry Molina MD> 02/08/25 10[address] [facility] Work Phone: 1(677) 212-288704-24-2025 [place] [address] Psychiatry H&P Signed Patient: Luan Jesus MR#: [id number] : 1990 Acct:[id number] Age/Sex: 34 / M Adm Date: 5 Loc: Room: [address] [place] [address] Type: ADM IN Attending Dr: Andry Molina MD Copies to: MD Shawn Saunders [facility], DO~ Date of Service: 02/08/2025 HPI Narrative Narrative: Mr. Jesus is a 34 male presenting with suicidal ideation and a plan with a history of depression andanxiety with a history of hepatitis C According to ER admission note patient presents with suicidal ideation with plan. He states that his plan is to slit both of his wrist. He does have a history of depression, he is on multiple psychotropic medications, Seroquel, lurasidone, gabapentin. He states that multiple years ago he did have asuicide attempt when he swallowed a bunch of pills that he had . He denies ingestion today, deniesdeliberate self-harm. He denies homicidal ideation or plan. According to admission note Pt stated I came to the ER before I hurt myself. Pt states Meds didhelp with these feelings in the past. Patient was personally seen by me on the day of the encounter. I reviewed the history and performedthe messina elements of the assessment. I formulated the planof care and confirmed this with the medical student as noted below At the time of the interview, pt presented as anxious. When asked patient about what led up to his hospitalization he said everything. Patient also said gait has been building up for the last couple weeks. Patient would not further clarify what these comments meant. Patient confirmed he presented with SI and a plan to slit his wrists. Patient said he has been not taking his medication for thelast 6 months because his insurance was not covering them. Patient rated his anxiety and depressionas a 7/10. Patient confirmed he was still having SI when he went to bed last night and he was worried about hurting himself. Patient denied having any plan in place. Patient denied HI and AVH. 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 Mental Status: mental status grossly normal Mood: Anxious Affect: Mood congruent Speech and Movement: speech and movement normal Thought Process: normal Thought Content: Denies paranoid or delusional thoughts. Denied hallucinations, no homicidality andpositive suicidality. Does not appear to be responding to internal stimuli. Insight: limited Judgment: limited Patient strengths and protective factors: Supportive family and friends and seeking help Patient's weaknesses and risk factors: Making unhealthy decisions and medicationcompliance Attitude for change: Fair AIMS: No abnormal movements noted. Score 0. Review of Systems Constitutional: Pt denies fatigue, malaise. Neuro: Denies dizziness/lightheadedness. HEENT: Denies vision/hearing changes. Pulmonary: Denies SOB, dyspnea, cough, wheezing. Cardiac: Denies chest pain/pressure. Denies edema, palpitations. GI: Denies abdominal pain, heartburn, N/V. Denies constipation and diarrhea : Denies dysuria, hematuria, polyuria. Physical exam General: not in any acute distress Skin: intact HEENT: head atraumatic, face symmetrical. Pulm: Breathing normally without excessive effort Cardio: Regular rate and rhythm Abdomen: Normal inspection Musculoskeletal: Moves all extremities, normal strength all extremities. Neuro: Pt alert, oriented x3. CNI: Smell intact CNII: Visual echeverria intact CNIII,IV,: EOM intact, no nystagmus. CNV: Sensation intact to light touch. CNVII: Raises eyebrows, smile/frown, puff out cheeks symmetrically. CNVIII: Hearing intact bilaterally. CNIX,X: Voice normal, soft palate elevation normal, symmetrical. CNXI: Shoulder shrug strong, equal bilaterally. CNXII: Tongue protrusion midline Review of Systems Review of Systems All other systems reviewed & are negative unless noted below or in HPI [facility] Medical History Depression Problem List clean-up per request of Phys. EHR Cmte Surgical History History of appendectomy Problem List clean-up per request of Phys. EHR Cmte Social History Smoking Status: Current every day smoker Tobacco Type: cigarettes Substance Use Type: Marijuana Meds Medications and Allergies Allergies diphtheria, pertussis, tetanus vacc Allergy (Verified 02/07/25 23:55) Seizure Home Medications gabapentin 600 mg tablet 600 mg PO QID 02/07/25 [History Confirmed 02/07/25] quetiapine 50 mg tablet 100 mg PO BID 02/07/25 [History Confirmed 02/07/25] vilazodone 20 mg tablet 20 mg PO DAILY 02/07/25 [History Confirmed 02/07/25] Exam Physical Exam Vital Signs: Temp Pulse Resp BP Pulse Ox O2 Del Method 98.7 F 76 18 145/83 H 95 Room Air 02/08/25 05:23 02/08/25 05:23 02/08/25 05:23 02/08/25 05:23 02/08/25 05:23 02/08/25 05:23 Results - Psychiatry Labs 02/08/25 01:54 02/08/25 01:54 Psychiatry Labs: 02/08/25 02/08/25 01:54 03:24 RBC 5.65 H Hgb 17.2 H Hct 50.4 H MCV 89.2 MCH 30.4 MCHC 34.1 RDW 13.3 Plt Count 268 MPV 8.3 Sodium 136 Potassium 4.0 Chloride 106 Carbon Dioxide 22.5 Anion Gap 11.5 BUN 12 Creatinine 1.14 Calcium 8.9 Total Bilirubin 0.7 AST 32 ALT 79 H Alkaline Phosphatase 91 Total Protein 7.7 Albumin 4.1 Urine Color Yellow Urine Appearance Clear Urine pH 5.5 Ur Specific [place] 1.018 Urine Protein Negative Urine Glucose (UA) Normal Urine Ketones Negative Urine Occult Blood Negative Urine Nitrite Negative Ur Leukocyte Esterase Negative Assessment/Plan (1) Major depressive disorder, recurrent severe without psychotic features: Plan 34 male presenting with suicidal ideation and a plan to slit his wrist Plan: -Continue Vilazodone, Seroquel and gabapentin -Patient noted to have leukocytosis in the ED, white blood cell count of 19.6, repeat vital checks -Continue to monitor mental status -Monitor suicidal behaviors for safety of self (15-minute face check). -Encourage medication adherence. Risks, benefits, and alternatives of treatment explained -Recommend? attending groups and psychoeducation for building coping skills. -Risks, benefits and indications of medications were discussed with the patient.? -No abnormal movements noted on exam. AIMS is Zero. -Involve friends/family members to coordinate care and ensure appropriate outpatient appointments are scheduled prior to discharge. Current medications: Vilazodone 20 mg daily Seroquel 100 mg twice daily Gabapentin 600 mg 4 times daily Documented By: Andry Molina MD 5 [id number] Signed By: 02/08/[address] [place], [place] 7110104-24-2025 Evaluation note* Diagnosis Onset Date Resolution Status Admit Date Major depressive disorder, recurrent severe without psychotic features acute February 08, 025 2:43am Suicidal ideation acute January 172024 2:43am [facility] Work Phone: 1(179) 406-918804-02-2025 Discharge summary Author Andry gomez [facility] Note Date/Time February 10, 2025 11: 28am [facility] [address] [place] [address] Discharge Summary Signed Patient: Luan Jesus MR#: [id number] : 1990 Acct:[id number] Age/Sex: 34 / M Adm Date: 5 Loc: Room: [address] [place] [address]: Andry Molina MD Copies to: MD Shawn Saunders III, DO~ Providers Date of Discharge: 02/10/25 Discharging Provider: Andry Molina Primary Care Provider: Shawn Paris III Discharge Diagnosis (1) Major depressive disorder, recurrent severe without psychotic features: Final Diagnosis Final Discharge Diagnosis: mdd Summary Hospital Course Hospital course: Mr. Jesus is a 34 male presenting with suicidal ideation and a plan with a history of depression and anxiety with a history of hepatitis C According to ER admission note patient presents with suicidal ideation with plan. He states that his plan is to slit both of his wrist. He does have a history of depression, he is on multiple psychotropic medications, Seroquel, lurasidone, gabapentin. He states that multiple years ago he did have a suicide attempt when he swallowed a bunch of pills that he had . He denies ingestion today, denies deliberate self-harm. He denies homicidal ideation or plan. According to admission note Pt stated I came to the ER before I hurt myself. Pt states Meds did help with these feelings in the past. Patient was personally seen by me on the day of the encounter. I reviewed the history and performed the messina elements of the assessment. I formulated the planof care and confirmed this with the medical student as noted below At the time of the interview, pt presented as anxious. When asked patient about what led up to his hospitalization he said everything. Patient also said gait has been building up for the last couple weeks. Patient would not further clarify what these comments meant. Patient confirmed he presented with SI and a plan to slit his wrists. Patient said he has been not taking his medication for the last 6 months because his insurance was not covering them. Patient rated his anxiety and depression as a 7/10. Patient confirmed he was still having SI when he went to bed last night and he was worried about hurting himself. Patient denied having any plan in place. Patient denied HI and AVH. Past psych history: Reports anxiety and depression Past psych hospitalizations: Reports multiple most recent was in January 2022 Past suicide attempts: Reports 1 where he took a lot of pills to overdose Previous medications: Reports being on gabapentin, Seroquel and the Vilazodone Alcohol and drug use: Reports marijuana use 2 to 3 days a week and opiates. 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 He stated that his medication regimen has been effective and he has been following up with family health services in [facility]. He has not been consistently compliant with it due to the cost. I offered him alternative medication knowing that the will Vilazidone is a hard medication to be covered by insurance. The mood has been improving since admission. We discussed the importance of medical compliance. Anxiety is moderate in intensity with attempted utilization of coping skills. He denies SI/HI and verbalized the intent to notify staff if he has such thoughts. His symptoms have been improving, and his affect is becoming brighter. He continues to be compliant with prescribed medications and is visible within the unit milieu. He alluded to psychosocial stressors being the primary issue that he is struggling with. I discussed the case with his mother who indicated that the patient has been struggling with opiate use disorder. His last use was last Wednesday. Given his last use of opiate use recently I believe that naltrexone may precipitate a withdrawal reaction. We also discussed the risks and benefits of Suboxone versus naltrexone. I believe he may benefit from outpatient Suboxone treatment as well as Sublocade. He has no history of recent attempts and has been future-oriented, said he misses his child and wants to live to take care of him, articulated needs appropriately, and displayed no self-harm behaviors. Imminent risk is low, giventhe factors noted above. Further inpatient hospitalization is unlikely to mitigate suicide risk, and p agrees to f/u with outpatient psych care. All lab results were discussed with the patient. We also discussed the prognosis of the illness and the importance of outpatient CBT. He agreed to continue the current medication regimen. Risks, benefits, and indications of medications were discussed. He verbalized d understanding. Overall, he has a positive mood and attitude towards life. Acute suicide risk assessment was low. His modifiable risk factors, including anxiety and depression, were managed with current medication. He did not report any suicidality today and no suicidality behavior during his hospitalization. Hehas been attending groups and is motivated for outpatient treatment. He has somechronic risk factors due to his previous hospitalizations and comorbid substanceuse but said he is in a much better place compared to the time of admission. Mental Status: grossly normal Appearance: dressed casually Mood: Euthymic mood Affect: Normal affect Speech and Movement: speech and movement are normal and speech clear Attitude: cooperative Thought Process: Normal Thought Content: Denied hallucinations, no homicidal and no suicidality Insight: fair Judgment: fair Impulse control: fair Time spent discussing smoking cessation with patient: more than 10 minutes Condition Condition at Discharge: Stable Status at Discharge Functional status at discharge: independent ambulation Time Spent with Patient Time spent providing/coordinating discharge services (# min): 99 Discharge Plan Discharge Plan Patient Disposition: Home Activity: No Activity Restriction Diet: Regular Additional Instructions: Important Contact Information You can call [facility] at [phone] any time day or night if you have emergent questions or question regarding discharge instructions. If at any time you are feeling an increase inyour psychiatric symptoms, call your physician or behavioral healthcare provider. If any time you have thoughts of harming yourself or others contact one of the following: Call (available 10/05) Crisis Text Line (available 10/05) text 4HOPE to [phone] [facility] Hope Line (available 8 a.m. Midnight) call [phone] ([phone]) Regular Diet No Activity Restrictions Instructions: Depression in adults - Discharge instructions, [facility] [place] Instructions, Know your Meds Prescriptions: Continued gabapentin 600 mg tablet 600 mg PO QID 15 Days Qty: 60 0RF quetiapine 50 mg tablet 100 mg PO BID 15 Days Qty: 60 0RF vilazodone 20 mg tablet 20 mg PO DAILY 30 Days Qty: 30 1RF Follow Up: [facility] [Outside] - 02/14/25 1:00 pm (Please call if you need to reschedule your hospital follow-up appointment with Roly. ) Shawn Paris III R, DO [Primary Care Provider] - (Call for any medical needs) Exam Physical Exam Vital Signs: Temp Pulse Resp BP Pulse Ox O2 Del Method 98.2 F 108 H 16 102/74 95 Room Air 02/10/25 07:30 02/10/25 07:30 02/10/25 07:30 02/10/25 07:30 02/10/25 07:30 02/10/25 07:30 Diagnostic Studies Completed and Pending Studies Pending studies at discharge: 02/09/25 06:00 CBC [Complete Blood Count Auto Diff] Routine Documented By: Andry Molina MD 5 [id number] Signed By: <Electronically signed by nAdry Molina MD> 02/10/25 1126 [facility] Work Phone: 1(831) 555-675710-25-2022 Hospital Discharge instructions Patient Education 08/11/2022 10:06:37 Acute Back Pain, Adult Acute Back Pain, Adult Acute back pain is sudden and usually short-lived. It is often caused by an injury to the muscles and tissues in the back. The injury may result from: A muscle or ligament getting overstretched or torn (strained). Ligaments are tissues that connect bones to each other. Lifting something improperly can cause a back strain. Wear and tear (degeneration) of the spinal disks. Spinal disks are circular tissue that provides cushioning between the bones of the spine (vertebrae). Twisting motions, such as while playing sports or doing yard work. A hit to the back. Arthritis. You may have a physical exam, lab tests, and imaging tests to find the cause of your pain. Acute back pain usually goes away with rest and home care. Follow these instructions at home: Managing pain, stiffness, and swelling Take uiwf-lit-zmcohuy and prescription medicines only as told by your health care provider. Your health care provider may recommend applying ice during the first 24 48 hours after your pain starts. To do this: ?Put ice in a plastic bag. ?Place a towel between your skin and the bag. ?Leave the ice on for 20 minutes, 2 3 times a day. If directed, apply heat to the affected area as often as told by your health care provider. Use theheat source that your health care provider recommends, such as a moist heat pack or a heating pad. ?Place a towel between your skin and the heat source. ?Leave the heat on for 20 30 minutes. ?Remove the heat if your skin turns bright red. This is especially important if you are unable to feel pain, heat, or cold. You have a greater risk of getting burned. Activity Do not stay in bed. Staying in bed for more than 1 2 days can delay your recovery. Sit up and stand up straight. Avoid leaning forward when you sit, or hunching over when you stand. ?If you work at a desk, sit close to it so you do not need to lean over. Keep your chin tucked in. Keep your neck drawn back, and keep your elbows bent at a right angle. Your arms should look like the letter L. ?Sit high and close to the steering wheel when you drive. Add lower back (lumbar) support to your car seat, if needed. Take short walks on even surfaces as soon as you are able. Try to increase the length of time you walk each day. Do not sit, drive, or chain maker loom control one place for more than 30 minutes at a time. Sitting or standing for long periods of time can put stress on your back. Do not drive or use heavy machinery while taking prescription pain medicine. Use proper lifting techniques. When you bend and lift, use positions that put less stress on your back: ?Bend your knees. ?Keep the load close to your body. ?Avoid twisting. Exercise regularly as told by your health care provider. Exercising helps your back heal faster andhelps prevent back injuries by keeping muscles strong and flexible. Work with a physical therapist to make a safe exercise program, as recommended by your health care provider. Do any exercises as told by your physical therapist. Lifestyle Maintain a healthy weight. Extra weight puts stress on your back and makes it difficult to have good posture. Avoid activities or situations that make you feel anxious or stressed. Stress and anxiety increase muscle tension and can make back pain worse. Learn ways to manage anxiety and stress, such as through exercise. General instructions Sleep on a firm mattress in a comfortable position. Try lying on your side with your knees slightlybent. If you lie on your back, put a pillow under your knees. Follow your treatment plan as told by your health care provider. This may include: ?Cognitive or behavioral therapy. ?Acupuncture or massage therapy. ?Meditation or yoga. Contact a health care provider if: You have pain that is not relieved with rest or medicine. You have increasing pain going down into your legs or buttocks. Your pain does not improve after 2 weeks. You have pain at night. You lose weight without trying. You have a fever or chills. Get help right away if: You develop new bowel or bladder control problems. You have unusual weakness or numbness in your arms or legs. You develop nausea or vomiting. You develop abdominal pain. You feel faint. Summary Acute back pain is sudden and usually short-lived. Use proper lifting techniques. When you bend and lift, use positions that put less stress on your back. Take iyjc-olt-ozubifx and prescription medicines and apply heat or ice as directed by your health care provider. This information is not intended to replace advice given to you by your health care provider. Make sure you discuss any questions you have with your health care provider. Document Released: 10/04/2006 Document Revised: 01/23/2020 Document Reviewed: 05/18/2018 [employer] Patient Education 2019 Health: [place]. Follow Up Care 08/11/2022 08:17:30 With:Mark PASCAL Address: [address], [place] [address]- Business (1) When:08/14/2022 09:59:06 [facility]08-12-2022 Evaluation + Plan note Diagnostic Tests Pending * Acute Hepatitis A B C Panel 05/29/22 * HIV Screen 4th Generation wRfx 05/29/22 [facility]04-27-2022 Progress note Author Alok Flanagan [facility] February 11, 2022 2:26pm Note Date/Time February 11, 2022 2:2 6pm [facility] [address] [place], [place] [id number] Psychiatry Progress Note Signed Patient: Luan Jesus MR#: [id number] : 1990 Acct:[id number] Age/Sex: 31 / M Adm Date: 2 Loc: Room: [address] [place] [address] Type : ADM IN Attending Dr: Alok Flanagan MD Copies to: ~ Date of Service: 02/11/2022 Subjective Subjective Narrative: Mr. Jesus reported that he is feeling better. He reported that he feels like he was just exhausted from a lot of social stressors that he was dealing with. He reported that his anxiety is under better control. His sleep and appetite have been good. He denied any current suicidal ideation. Mental Status Exam: Appearance: grossly normal Mental Status: mental status grossly normal Mood: Euthymic mood Affect: Normal affect Speech and Movement: speech and movement normal and speech clear Attitude: cooperative Thought Process: normal Thought Content: Denied hallucinations, no homicidality and no suicidality Insight: Good Judgment: Good Exam Physical Exam Vital Signs: Temp Pulse Resp BP Pulse Ox 97.9 F 74 16 142/86 H 97 02/11/22 07:30 02/11/22 07:30 02/11/22 07:30 02/11/22 07:30 02/11/22 07:30 Narrative: Eyes: PERRLA, EOMI. No conjunctival injection, no mucosal pallor. No scleral icterus noted. No nystagmus. HEENT: The external ears and nose appear grossly normal. Cardiovascular: No obvious lower extremity edema Neck trachea is midline Respiratory: Speaks in full sentences without difficulty Gastrointestinal: Soft, nontender abdomen. No distention. No rebound, guarding, organomegaly noted. Neurological exam: Moves all extremities without difficulty. Alert and oriented x3. No focal neurological deficits. CNII: Visual echeverria intact CNIII,IV,: EOM intact, no nystagmus. Pupils equal, round, reactive to light and accommodation. CNV: Sensation intact to light touch. CNVII: Raises eyebrows, smile/frown, puff out cheeks symmetrically. CNVIII: Hearing intact bilaterally. CNIX,X: Voice normal, soft palate elevation normal, symmetrical. CNXI: Shoulder shrug strong, equal bilaterally. CNXII: Tongue protrusion midline, movement symmetrical. Musculoskeletal: Grossly normal range of motion all extremities without pain. No obvious crepitus, deformity. No obvious effusion. Psychiatric: Please see HPI for psychiatric examination Assessment/Plan Assessment/Plan (1) Major depressive disorder: Code(s): F32.9 - Major depressive disorder, single episode, unspecified Status: Acute (2) Anxiety: Code(s): F41.9 - Anxiety disorder, unspecified Status: Acute (3) Suicidal ideation: Code(s): R45.851 - Suicidal ideations Status: Acute Plan Luan reported that things have been improving. He stated that his anxiety is under better control and denies current suicidality Continue Effexor 75 mg and Neurontin 300 mg 3 times a day for anxiety Continue to monitor mental status Encourage group participation and medication compliance Risk benefits alternatives explained Documented By: Alok Flanagan MD 02/11/221424 Signed By: <Electronically signed by Alok Flanagan MD> 02/11/221425 [facility] Work Phone: [phone] 441-639704-26-2022 History and physical note Author Alok Flanagan [facility] February 10, 2022 3:38pm Note Date/Time February 10, 2022 9:5 6am [facility] [address] [place] [address] Psychiatry H&P Signed Patient: Luan Jesus MR#: [id number] : 1990 Acct:[id number] Age/Sex: 31 / M Adm Date: 2 Loc: 1S Room: 9B8221-2 Type : ADM IN Attending Dr: Alok Flanagan MD Copies to: MD Luis Quiroga DO, RES Shawn Paris III, ~ Date of Service: 02/10/2022 HPI History of Present Illness History of present illness: Mr. Jesus is a 31 year old male with past medical history of major depressive disorder, anxiety that was previously managed with (per the patient) doxepin, Vistaril, Seroquel, Vraylar, Abilify at the same time. I am unsure how true this is. He states that he has had depression symptoms my entire life but recently has had. Increasing symptoms of depression, hopelessness, and has stopped going to work. He states that I am sabotaging myself he does endorse suicidal ideation with a plan in place. He is vague to the mechanism of the plan however he references medication in passing. He further notes history of anxiety that was not appropriately managed with Vistaril, he does note being given 1 mg of Ativan in the emergency room for anxiety with minimal relief. He is asking for something to modulate his anxiety. He does not have access to a firearm at home. He denies homicidal ideation. Hedenies auditory visual hallucination. He notes that his childhood was somewhat difficult, his father left at 8 and wasin and out of his life from that time. He grew up with his mom. There is a prominent family history of depression and anxiety, denies any history of bipolar disorder or schizophrenia both in himself and his family members. He has never been hospitalized for psychiatric reasons. However he does report a attempted intentional overdose with his home medications in 2014. Patient does have a 4-year-old son, who lives with the son's biological mother. He does have visitation and. He does not want a psychiatrist at this time. He does note previous incarceration for drug charges. He does report history of previous opiate abuse last use was January 02, 2019. Appearance: grossly normal Mental Status: Alert and oriented x3, responds appropriately to questioning. Mood: Depressed, hopeless mood. Affect: Flattened affect Speech and Movement: Some slight psychomotor retardation however movement and speech is grossly normal. Attitude: Cooperative, somewhat drug-seeking Thought Process: Thought process is linear and goal-directed however severely depressed. Thought Content: Patient does endorse suicidal ideations with plan in place however denies auditory or visual hallucinations thought content is not fantastical. Insight: Fair to poor Judgment: Poor Patient was personally seen by me on the day of the encounter. I reviewed the history and performed the messina elements of the physical examination. I formulated the plan of care and confirmed this with the resident as noted below. Patient presenting due to concern for depression and suicidality. He reported that this has been going on for a while and has been getting progressively worse. He reported that he has not been sleeping well prior to the hospitalization but has slept well so far while he is here. He denied any hallucinations. He reported that he has been on BuSpar before and does not feellike it is helping. Review of Systems Review of Systems Review of systems: Constitutional: Denies chills and Denies fever(s) Eyes: Denies change in vision ENT: Denies abnormal hearing Cardiovascular: Denies chest pain Respiratory: Denies chest congestion and Denies cough Gastrointestinal: Denies change in bowel habits Genitourinary: Denies dysuria Musculoskeletal: Denies atrophy and Denies myalgias Integumentary/Breasts: Denies dry skin Neurologic: Denies abnormal gait and Denies abnormal movements Psychiatric: See HPI PMFSH Vaccinated for COVID-19?: No Medical History (Updated 02/10/22 @ 09:51 by Luis Sharpe DO, RES) Depression Surgical History History of appendectomy Social History Smoking Status: Current every day smoker Tobacco Type: cigarettes Substance Use Type: Opiates Meds Medications and Allergies Allergies diphtheria, pertussis, tetanus vacc Allergy (Verified 10/02/19 21:55) Seizure Home Medications No known home meds 02/09/22 [History Confirmed 02/09/22] Exam Physical Exam Vital Signs: Temp Pulse Resp BP Pulse Ox 98 F 73 16 119/84 96 02/10/22 07:30 02/10/22 07:30 02/10/22 07:30 02/10/22 07:30 02/10/22 07:30 Narrative: Eyes: PERRLA, EOMI. No conjunctival injection, no mucosal pallor. No scleral icterus noted. No nystagmus. HEENT: The external ears and nose appear grossly normal. Cardiovascular: No obvious lower extremity edema Neck trachea is midline Respiratory: Speaks in full sentences without difficulty Gastrointestinal: Soft, nontender abdomen. No distention. No rebound, guarding, organomegaly noted. Neurological exam: Moves all extremities without difficulty. Alert and oriented x3. No focal neurological deficits. CNII: Visual echeverria intact CNIII,IV,: EOM intact, no nystagmus. Pupils equal, round, reactive to light and accommodation. CNV: Sensation intact to light touch. CNVII: Raises eyebrows, smile/frown, puff out cheeks symmetrically. CNVIII: Hearing intact bilaterally. CNIX,X: Voice normal, soft palate elevation normal, symmetrical. CNXI: Shoulder shrug strong, equal bilaterally. CNXII: Tongue protrusion midline, movement symmetrical. Musculoskeletal: Grossly normal range of motion all extremities without pain. No obvious crepitus, deformity. No obvious effusion. Psychiatric: Please see HPI for psychiatric examination Results Labs CBC & Chem 7: 02/09/22 13:30 02/09/22 13:30 Psychiatry Labs: 02/09/22 02/09/22 02/09/22 12:50 13:30 13:30 RBC 5.52 Hgb 16.6 Hct 50.1 H MCV 90.8 MCH 30.1 MCHC 33.1 RDW 13.6 Plt Count 243 MPV 8.0 Sodium 138 Potassium 4.2 Chloride 101 Carbon Dioxide 26.9 BUN 9 Creatinine 1.00 Calcium 8.9 Total Bilirubin 0.7 AST 27 ALT 52 Alkaline Phosphatase 55 Total Protein 7.2 Albumin 4.1 Urine Color Yellow Urine Appearance Clear Urine pH 7.5 Ur Specific [place] 1.019 Urine Protein Negative Urine Glucose (UA) Normal Urine Ketones Negative Urine Occult Blood Negative Urine Nitrite Negative Ur Leukocyte Esterase 1+ H Urine RBC 0-1 Urine WBC 1-2 Microbiology Microbiology: Microbiology - Results from entire visit 02/09/22 13:48 Nasal SARS Antigen (LFIA) - Final Assessment/Plan (1) Major depressive disorder: Code(s): F32.9 - Major depressive disorder, single episode, unspecified Status: Acute (2) Anxiety: Code(s): F41.9 - Anxiety disorder, unspecified Status: Acute (3) Suicidal ideation: Code(s): R45.851 - Suicidal ideations Status: Acute Plan Patient is a 31-year-old male who presents to the [facility] via the emergency room after bring himself in for worsening anxiety and depression symptoms. He states that he has been more depressed over the last 2 weeks and has stopped going to work. He states he feels hopeless and recognize he is sabotaging himself. He does endorse suicidal ideation with plan in place, he vaguely references medication as to mechanism. He does have a documented history of a intentional medication overdose in 2014. He does have a history of opiate use disorder which led to his incarceration. He has not used opiates since 01/02/2019. UA remarkable for marijuana which she has a medical marijuana card for. He states having an adverse reaction to Seroquel previously which appears to be akathisia. He does not use of Abilify and Vraylar previously with somewhat good effect. He states that he is taking Wellbutrin and it has made him itchy . He has never tried any proper antidepressants. Will initiate Effexor 75 mg BuSpar was stopped due to patient reporting that he had tried the medication before. We will use Neurontin 300 mg 3 times a day for anxiety Did discuss with the benefits of treatment with the patient verbalized understanding. Did encourage patient to attend group. Continue to monitor the patient. Patient does not want an outpatient psychiatrist at this time. Documented By: Luis Sharpe DO, RES 2 0945 Signed By: <Electronically signed by RES Luis Sharpe> 02/10/22 0956 <Electronically signed by Alok Flanagan MD> 02/10/22 3979 [facility] Work Phone: Evaluation + Plan note No data available for this section [facility]* Diagnosis Onset Date Resolution Status Anxiety acute Major depressive disorder ac [facility] Work Phone: Evaluation note* Diagnosis Onset Date Resolution Status Anxiety acute Major depressive disorder ac [place] Suicidal ideation acute [facility] Work Phone: Evaluation noteNo assessment information available [facility] Work Phone: Evaluation note* Diagnosis Onset Date Resolution Status Admit Date Suicidal ideation acute January 172024 2:43am [facility] Work Phone: History and physical note Author Andry gomez [facility] Note Date/Time February 08, 2025 10: 51am [facility] [address] [place] [address] Psychiatry H&P Signed Patient: Luan Jesus MR#: [id number] : 1990 Acct:[id number] Age/Sex: 34 / M Adm Date: 5 Loc: Room: [address] [place] [address] Type: ADM IN Attending Dr: Andry Molina MD Copies to: MD Shawn Saunders III, DO~ Date of Service: 02/08/2025 HPI Narrative Narrative: Mr. Jesus is a 34 male presenting with suicidal ideation and a plan with a history of depression and anxiety with a history of hepatitis C According to ER admission note patient presents with suicidal ideation with plan. He states that his plan is to slit both of his wrist. He does have a history of depression, he is on multiple psychotropic medications, Seroquel, lurasidone, gabapentin. He states that multiple years ago he did have a suicide attempt when he swallowed a bunch of pills that he had . He denies ingestion today, denies deliberate self-harm. He denies homicidal ideation or plan. According to admission note Pt stated I came to the ER before I hurt myself. Pt states Meds did help with these feelings in the past. Patient was personally seen by me on the day of the encounter. I reviewed the history and performed the messina elements of the assessment. I formulated the planof care and confirmed this with the medical student as noted below At the time of the interview, pt presented as anxious. When asked patient about what led up to his hospitalization he said everything. Patient also said gait has been building up for the last couple weeks. Patient would not further clarify what these comments meant. Patient confirmed he presented with SI and a plan to slit his wrists. Patient said he has been not taking his medication for the last 6 months because his insurance was not covering them. Patient rated his anxiety and depression as a 7/10. Patient confirmed he was still having SI when he went to bed last night and he was worried about hurting himself. Patient denied having any plan in place. Patient denied HI and AVH. 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 Mental Status: mental status grossly normal Mood: Anxious Affect: Mood congruent Speech and Movement: speech and movement normal Thought Process: normal Thought Content: Denies paranoid or delusional thoughts. Denied hallucinations, no homicidality and positive suicidality. Does not appear to be responding to internal stimuli. Insight: limited Judgment: limited Patient strengths and protective factors: Supportive family and friends and seeking help Patient's weaknesses and risk factors: Making unhealthy decisions and medicationcompliance Attitude for change: Fair AIMS: No abnormal movements noted. Score 0. Review of Systems Constitutional: Pt denies fatigue, malaise. Neuro: Denies dizziness/lightheadedness. HEENT: Denies vision/hearing changes. Pulmonary: Denies SOB, dyspnea, cough, wheezing. Cardiac: Denies chest pain/pressure. Denies edema, palpitations. GI: Denies abdominal pain, heartburn, N/V. Denies constipation and diarrhea : Denies dysuria, hematuria, polyuria. Physical exam General: not in any acute distress Skin: intact HEENT: head atraumatic, face symmetrical. Pulm: Breathing normally without excessive effort Cardio: Regular rate and rhythm Abdomen: Normal inspection Musculoskeletal: Moves all extremities, normal strength all extremities. Neuro: Pt alert, oriented x3. CNI: Smell intact CNII: Visual echeverria intact CNIII,IV,: EOM intact, no nystagmus. CNV: Sensation intact to light touch. CNVII: Raises eyebrows,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
[2025-06-22 14:21] LABS: Hematocrit 50.7 % (42.0-54.0); Hemoglobin 17.7 g/dL (14.0-18.0); Immature Granulocytes Abs Auto 0.06 10^3/uL (0.00-0.03); Immature Granulocytes Pct Auto 0.5 % (0.0-0.5); Lymphocytes Absolute Auto 3.8 10^3/uL (1.2-3.8); Mean Corpuscular HGB Conc 34.9 g/dL (29.9-35.2); Mean Corpuscular Hemoglobin 30.5 pg (25.9-34.0); Mean Corpuscular Volume 87.4 fL (80.0-94.0); Platelet Count 286 10^3/uL (150-450); Red Blood Count 5.80 10^6/uL (4.70-6.10); White Blood Count 13.3 10^3/uL (4.0-11.0)
[2025-06-22] MEDS: MORPHINE SULFATE 4 MG/ML VIAL IV (14:22)
[2025-06-22 14:36] LABS: Alanine Aminotransferase 109 U/L (16-63); Albumin Globulin Ratio 0.9; Albumin Level 3.8 g/dL (3.4-5.0); Alkaline Phosphatase 101 U/L (46-116); Anion Gap 15.2; Aspartate Amino Transferase 44 U/L (15-37); Blood Urea Nitrogen 9.0 mg/dL (7.0-18.0); Calcium 8.6 mg/dL (8.5-10.1); Carbon Dioxide 25.5 mmol/L (21.0-32.0); Chloride 105 mmol/L (98-107); Estimated GFR (African America >60 (>=60 mL/min/1.73m^2); Estimated GFR (Non-African Ame >60 (>=60 mL/min/1.73m^2); Globulin 4.1 g/dL; Glucose 119 mg/dL (74-106); Potassium 3.7 mmol/L (3.5-5.1); Sodium 142 mmol/L (136-145); Total Protein 7.9 g/dL (6.4-8.2)
[2025-06-22 14:37] LABS: INR 0.96; Partial Thromboplastin Time 25.1 sec (22.3-36.2); Prothrombin Time 10.2 sec (9.0-11.6)
[2025-06-22] MEDS: MORPHINE SULFATE 2 MG/ML SYRINGE IV (15:44)
[2025-06-22 16:38] LABS: Glucose Urine UA NEGATIVE (NEGATIVE)
[2025-06-22 17:13] LABS: Cast Seen? NONE SEEN #/LPF (NONE SEEN); Crystals Seen? None Seen #/HPF (None Seen); Urine Culture Indicated NO
== END 2025-06-22 17:22 | disposition home or self-care (01) ==
PROVIDERS: Physician Assistant; Emergency Provider Student in an Organized Health Care Education/Training Program
DX: S70.01XA Contusion of right hip, initial encounter (principal); R10.9 Unspecified abdominal pain; V86.59XA Driver of other special all-terrain or other off-road motor vehicle injured in nontraffic accident, initial encounter
CPT/HCPCS: 36415; 73552; 74177; 80053; 81001; 85025; 85610; 85730; 96374; 96375; 96376; 99285; J2270; J2405; Q9967